=== PATIENT | female | born 1955 | race Caucasian/White ===

== ENCOUNTER 2017-06-09 09:46 | Emergency (ER) | payer OTHER ==
[2017-06-09 13:05] LABS: ADD MAN DIFF? NO
[2017-06-09 13:08] LABS: BASOPHIL # 0.1 10^3/ul (0.0-0.1); BASOPHILS % 0.9 % (0.0-2.0); EOSINOPHILS % 0.3 % (0.0-7.0); HEMATOCRIT 36.2 % (37.0-47.0); HEMOGLOBIN 11.9 g/dl (12.0-16.0); LYMPHOCYTES # 1.7 10^3/ul (0.8-2.9); MEAN CORPUSCULAR HEMOGLOBIN 29.8 pg (29.0-33.0); MEAN CORPUSCULAR HGB CONC 32.9 g/dl (32.0-37.0); MEAN CORPUSCULAR VOLUME 90.5 fl (82.0-101.0); MONOCYTE # 0.4 10^3/ul (0.3-0.9); MONOCYTES % 6.6 % (0.0-11.0); NEUTROPHIL # 4.2 10^3/ul (1.6-7.5); NEUTROPHILS % 65.9 % (39.0-77.0); PLATELET COUNT 219 10^3/UL (140-415); RED CELL DISTRIBUTION WIDTH 15.6 % (11.5-14.5)
[2017-06-09 13:08] LABS: WHITE BLOOD COUNT 6.4 10^3/ul (4.8-10.8)
[2017-06-09 13:27] LABS: INR 1.13; PARTIAL THROMBOPLASTIN TIME 27.9 Sec (25.0-35.0); PROTIME 14.7 Sec (11.9-14.9); PT RATIO 1.1
[2017-06-09 13:29] LABS: ALANINE AMINOTRANSFERASE 18 IU/L (13-69); ALBUMIN 2.8 g/dl (3.3-4.9); ALBUMIN/GLOBULIN RATIO 0.73; ALKALINE PHOSPHATASE 161 IU/L (42-121); ANION GAP 15 (8-16); ASPARTATE AMINO TRANSFERASE 45 IU/L (15-46); BILIRUBIN,INDIRECT 0.9 mg/dl (0-1.1); BILIRUBIN,TOTAL 0.9 mg/dl (0.2-1.3); BLOOD UREA NITROGEN 9 mg/dl (7-20); CALCIUM 8.7 mg/dl (8.4-10.2); CARBON DIOXIDE 33 mmol/L (21-31); CHLORIDE 94 mmol/L (97-110); CREATININE 0.77 mg/dl (0.44-1.00); GLUCOSE 156 mg/dl (70-220); LIPASE 86 U/L (23-300); POTASSIUM 3.6 mmol/L (3.5-5.1); SODIUM 138 mmol/L (135-144); TOTAL PROTEIN 6.6 g/dl (6.1-8.1)
[2017-06-09] MEDS: LIDOCAINE 1% (MDV) 20 ML INJ (13:57)
== END 2017-06-09 15:18 | disposition home or self-care (01) ==
LOC: E/R 09:46
DX: J20.9 Acute bronchitis, unspecified (principal); R18.8 Other ascites; R10.9 Unspecified abdominal pain; Z79.4 Long term (current) use of insulin; Z79.82 Long term (current) use of aspirin
CPT/HCPCS: 36415; 71010; 80053; 83690; 85025; 85610; 85730; 87400; 99285-25

== ENCOUNTER 2017-06-19 10:42 | Emergency (ER) | payer OTHER ==
[2017-06-19 16:20] LABS: ADD MAN DIFF? NO
[2017-06-19 16:31] LABS: WHITE BLOOD COUNT 5.5 10^3/ul (4.8-10.8)
[2017-06-19 16:31] LABS: BASOPHILS % 0.7 % (0.0-2.0); EOSINOPHILS % 0.4 % (0.0-7.0); HEMATOCRIT 32.4 % (37.0-47.0); HEMOGLOBIN 10.5 g/dl (12.0-16.0); LYMPHOCYTES # 1.6 10^3/ul (0.8-2.9); LYMPHOCYTES % 28.5 % (15.0-51.0); MEAN CORPUSCULAR HEMOGLOBIN 29.3 pg (29.0-33.0); MEAN CORPUSCULAR HGB CONC 32.4 g/dl (32.0-37.0); MEAN CORPUSCULAR VOLUME 90.5 fl (82.0-101.0); MEAN PLATELET VOLUME 9.3 fl (7.4-10.4); MONOCYTE # 0.4 10^3/ul (0.3-0.9); MONOCYTES % 7.5 % (0.0-11.0); NEUTROPHIL # 3.4 10^3/ul (1.6-7.5); NEUTROPHILS % 62.5 % (39.0-77.0); PLATELET COUNT 210 10^3/UL (140-415); RED BLOOD COUNT 3.58 10^6/ul (4.20-5.40); RED CELL DISTRIBUTION WIDTH 15.8 % (11.5-14.5)
[2017-06-19] MEDS: LIDOCAINE 1% (MPF) 5 ML VIAL (16:37)
[2017-06-19 16:53] LABS: INR 1.09; PARTIAL THROMBOPLASTIN TIME 28.4 Sec (25.0-35.0); PROTIME 14.3 Sec (11.9-14.9); PT RATIO 1.1
== END 2017-06-19 17:47 | disposition home or self-care (01) ==
LOC: E/R 10:42
DX: R18.8 Other ascites (principal); R11.0 Nausea; R06.02 Shortness of breath; E11.9 Type 2 diabetes mellitus without complications; Z79.82 Long term (current) use of aspirin; Z79.4 Long term (current) use of insulin
CPT/HCPCS: 85025; 85610; 85730; 99285-25

== ENCOUNTER 2017-06-27 09:46 | Emergency (ER) | payer OTHER ==
[2017-06-27] MEDS: LIDOCAINE 1% (MPF) 5 ML VIAL ×2 (16:45→18:33)
== END 2017-06-27 17:54 | disposition home or self-care (01) ==
LOC: E/R 09:46
DX: R18.8 Other ascites (principal); E11.9 Type 2 diabetes mellitus without complications; Z79.4 Long term (current) use of insulin; Z79.82 Long term (current) use of aspirin
CPT/HCPCS: 99285-25; Z7502

== ENCOUNTER 2017-07-06 09:59 | Emergency (ER) | payer OTHER ==
[2017-07-06] MEDS: ONDANSETRON (ODT) 4 MG TAB ODT (12:27)
[2017-07-06] MEDS: HYDROCODONE/APAP (10/325) TAB PO (12:28)
[2017-07-06] MEDS: LIDOCAINE 1% (MPF) 5 ML VIAL (17:12)
== END 2017-07-06 18:20 | disposition home or self-care (01) ==
LOC: E/R 09:59
DX: R18.8 Other ascites (principal); R10.84 Generalized abdominal pain; E11.9 Type 2 diabetes mellitus without complications; I10 Essential (primary) hypertension; Z79.4 Long term (current) use of insulin
CPT/HCPCS: 99285-25; Z7502

== ENCOUNTER 2017-07-14 07:21 | Inpatient (IN) | payer OTHER ==
[2017-07-14] MEDS: HYDROmorphONE 0.5 MG/0.5 ML SYG IV (08:27)
[2017-07-14] MEDS: ONDANSETRON 4 MG INJ IV (08:27)
[2017-07-14 08:34] LABS: ADD MAN DIFF? NO
[2017-07-14 08:39] LABS: WHITE BLOOD COUNT 5.7 10^3/ul (4.8-10.8)
[2017-07-14 08:39] LABS: BASOPHILS % 0.7 % (0.0-2.0); EOSINOPHILS # 0.1 10^3/ul (0.0-0.5); EOSINOPHILS % 0.9 % (0.0-7.0); HEMATOCRIT 33.6 % (37.0-47.0); HEMOGLOBIN 11.1 g/dl (12.0-16.0); LYMPHOCYTES # 1.3 10^3/ul (0.8-2.9); LYMPHOCYTES % 23.4 % (15.0-51.0); MEAN CORPUSCULAR HEMOGLOBIN 29.8 pg (29.0-33.0); MEAN CORPUSCULAR VOLUME 90.1 fl (82.0-101.0); MEAN PLATELET VOLUME 9.6 fl (7.4-10.4); MONOCYTE # 0.4 10^3/ul (0.3-0.9); MONOCYTES % 7.6 % (0.0-11.0); NEUTROPHIL # 3.8 10^3/ul (1.6-7.5); PLATELET COUNT 243 10^3/UL (140-415); RED BLOOD COUNT 3.73 10^6/ul (4.20-5.40); RED CELL DISTRIBUTION WIDTH 15.8 % (11.5-14.5)
[2017-07-14 09:00] LABS: ADD UMIC YES; UR ASCORBIC ACID 40 mg/dL (NEGATIVE); UR BACTERIA FEW /HPF (NONE SEEN); UR BILIRUBIN (Dip) NEGATIVE (NEGATIVE); UR BLOOD (Dip) NEGATIVE (NEGATIVE); UR CLARITY CLOUDY (CLEAR); UR COLOR AMBER (YELLOW); UR GLUCOSE (Dip) 2+ mg/dL (NEGATIVE); UR KETONES (Dip) NEGATIVE (NEGATIVE); UR LEUKOCYTE ESTERASE (Dip) 3+ Leu/ul (NEGATIVE); UR MUCUS FEW /HPF (NONE SEEN); UR NITRITE (Dip) NEGATIVE (NEGATIVE); UR NONSQUAMOUS EPITHELIAL CELL 1 /HPF (NONE SEEN); UR RBC 5 /HPF (0-5); UR SPECIFIC GRAVITY (Dip) 1.018 (1.003-1.030); UR SQUAMOUS EPITHELIAL CELL MODERATE /HPF (FEW); UR TOTAL PROTEIN (Dip) NEGATIVE (NEGATIVE); UR UROBILINOGEN (Dip) 1+ mg/dL (NEGATIVE); UR WBC 132 /HPF (0-5)
[2017-07-14 09:06] LABS: ALANINE AMINOTRANSFERASE 30 IU/L (13-69); ALBUMIN 2.7 g/dl (3.3-4.9); ALBUMIN/GLOBULIN RATIO 0.71; ALKALINE PHOSPHATASE 187 IU/L (42-121); ANION GAP 10 (8-16); ASPARTATE AMINO TRANSFERASE 41 IU/L (15-46); BILIRUBIN,INDIRECT 0.5 mg/dl (0-1.1); BILIRUBIN,TOTAL 0.5 mg/dl (0.2-1.3); BLOOD UREA NITROGEN 11 mg/dl (7-20); CALCIUM 8.8 mg/dl (8.4-10.2); CARBON DIOXIDE 35 mmol/L (21-31); CHLORIDE 90 mmol/L (97-110); CREATININE 0.62 mg/dl (0.44-1.00); GLUCOSE 256 mg/dl (70-220); LIPASE 111 U/L (23-300); SODIUM 132 mmol/L (135-144); TOTAL PROTEIN 6.5 g/dl (6.1-8.1)
[2017-07-14 09:15] LABS: POTASSIUM 2.8 mmol/L (3.5-5.1)
[2017-07-14] MEDS ORDERED: POTASSIUM PHOSPHATE 20 MEQ in SOD CHLORIDE 0.9% 250 ML IVPB (10:35)
[2017-07-14] MEDS: CEFTRIAXONE 1 GM/50 ML (PMX) 50 ML IVPB (10:52)
[2017-07-14] MEDS: POTASSIUM CHLORIDE 40 MEQ in DEXTROSE 5% 250 ML IV (11:30)
[2017-07-14] MEDS: HYDROmorphONE 1 MG/ML SYG IV (11:31)
[2017-07-14 13:15] LABS: INR 1.08; PROTIME 14.1 Sec (11.9-14.9); PT RATIO 1.1
[2017-07-14] MEDS ORDERED: HYDROmorphONE 1 MG/ML SYG IV (13:30)
[2017-07-14] MEDS ORDERED: NACL 0.9% 3 ML SYG IV (13:30)
[2017-07-14] MEDS ORDERED: ZOLPIDEM 5 MG TAB PO (13:30)
[2017-07-14] MEDS ORDERED: ACETAMINOPHEN 650 MG SUPP PR (13:30)
[2017-07-14] MEDS ORDERED: METOCLOPRAMIDE 10 MG INJ IV (13:30)
[2017-07-14] MEDS ORDERED: HYDROmorphONE 0.5 MG/0.5 ML SYG IV (13:30)
[2017-07-14] MEDS: LIDOCAINE 1% (MPF) 5 ML VIAL (15:03)
[2017-07-14] MEDS: DEXTROSE 5%-0.45% NACL 1,000 ML IV ×2 (15:19→17:35)
[2017-07-14 16:08] LABS: POTASSIUM 3.9 mmol/L (3.5-5.1)
[2017-07-15] MEDS: PANTOPRAZOLE 40 MG INJ IV (05:26)
[2017-07-15 07:33] LABS: ADD MAN DIFF? NO
[2017-07-15 07:48] LABS: BASOPHILS % 0.9 % (0.0-2.0); EOSINOPHILS # 0.1 10^3/ul (0.0-0.5); EOSINOPHILS % 1.1 % (0.0-7.0); HEMOGLOBIN 10.1 g/dl (12.0-16.0); LYMPHOCYTES # 0.9 10^3/ul (0.8-2.9); MEAN CORPUSCULAR HEMOGLOBIN 29.4 pg (29.0-33.0); MEAN CORPUSCULAR HGB CONC 32.6 g/dl (32.0-37.0); MEAN CORPUSCULAR VOLUME 90.4 fl (82.0-101.0); MEAN PLATELET VOLUME 9.4 fl (7.4-10.4); MONOCYTE # 0.4 10^3/ul (0.3-0.9); MONOCYTES % 7.6 % (0.0-11.0); NEUTROPHIL # 3.2 10^3/ul (1.6-7.5); NEUTROPHILS % 70.2 % (39.0-77.0); PLATELET COUNT 183 10^3/UL (140-415); RED BLOOD COUNT 3.43 10^6/ul (4.20-5.40); RED CELL DISTRIBUTION WIDTH 15.6 % (11.5-14.5)
[2017-07-15 07:48] LABS: WHITE BLOOD COUNT 4.6 10^3/ul (4.8-10.8)
[2017-07-15 08:08] LABS: INR 1.17; PROTIME 15.1 Sec (11.9-14.9); PT RATIO 1.2
[2017-07-15 08:09] LABS: PARTIAL THROMBOPLASTIN TIME 29.4 Sec (25.0-35.0)
[2017-07-15 08:11] LABS: ALANINE AMINOTRANSFERASE 34 IU/L (13-69); ALBUMIN 2.1 g/dl (3.3-4.9); ALKALINE PHOSPHATASE 300 IU/L (42-121); ANION GAP 8 (8-16); ASPARTATE AMINO TRANSFERASE 88 IU/L (15-46); BILIRUBIN,INDIRECT 0.5 mg/dl (0-1.1); BILIRUBIN,TOTAL 0.5 mg/dl (0.2-1.3); BLOOD UREA NITROGEN 9 mg/dl (7-20); CALCIUM 8.6 mg/dl (8.4-10.2); CARBON DIOXIDE 34 mmol/L (21-31); CHLORIDE 96 mmol/L (97-110); CREATININE 0.61 mg/dl (0.44-1.00); GLUCOSE 171 mg/dl (70-220); POTASSIUM 3.4 mmol/L (3.5-5.1); SODIUM 135 mmol/L (135-144); TOTAL PROTEIN 5.1 g/dl (6.1-8.1)
[2017-07-15] MEDS: CEFTRIAXONE 1 GM/50 ML (PMX) 50 ML IVPB (12:22)
[2017-07-15] MEDS: POTASSIUM CHLORIDE 20 MEQ POWDER FOR ORAL SOLN PO (14:21)
[2017-07-16] MEDS: CYCLOBENZAPRINE 10 MG TAB PO (06:07)
[2017-07-16] MEDS: PANTOPRAZOLE 40 MG INJ IV (06:07)
[2017-07-16 07:43] LABS: HEMATOCRIT 31.7 % (37.0-47.0); HEMOGLOBIN 10.5 g/dl (12.0-16.0); MEAN CORPUSCULAR HEMOGLOBIN 29.6 pg (29.0-33.0); MEAN CORPUSCULAR HGB CONC 33.1 g/dl (32.0-37.0); MEAN CORPUSCULAR VOLUME 89.3 fl (82.0-101.0); MEAN PLATELET VOLUME 9.3 fl (7.4-10.4); PLATELET COUNT 205 10^3/UL (140-415); RED BLOOD COUNT 3.55 10^6/ul (4.20-5.40); RED CELL DISTRIBUTION WIDTH 15.8 % (11.5-14.5)
[2017-07-16 07:43] LABS: WHITE BLOOD COUNT 4.3 10^3/ul (4.8-10.8)
[2017-07-16 08:00] LABS: ADD MAN DIFF? YES; POSITIVE DIFF @See below
[2017-07-16 08:02] LABS: INR 1.12; PROTIME 14.6 Sec (11.9-14.9); PT RATIO 1.1
[2017-07-16 08:03] LABS: PARTIAL THROMBOPLASTIN TIME 33.5 Sec (25.0-35.0)
[2017-07-16 08:14] LABS: ANION GAP 8 (8-16); BLOOD UREA NITROGEN 8 mg/dl (7-20); CARBON DIOXIDE 32 mmol/L (21-31); CHLORIDE 98 mmol/L (97-110); CREATININE 0.59 mg/dl (0.44-1.00); GLUCOSE 148 mg/dl (70-220); POTASSIUM 3.9 mmol/L (3.5-5.1); SODIUM 134 mmol/L (135-144)
[2017-07-16 08:15] LABS: CALCIUM 8.2 mg/dl (8.4-10.2)
[2017-07-16 09:50] LABS: BAND NEUTROPHILS % (M) 2 % (0-4); BASOPHILS % (M) 1 % (0-2); EOSINOPHILS % (M) 2 % (0-7); GIANT THROMBO% (M) 1 % (0-0); LYMPHOCYTES #M 1.3 10^3/ul (0.8-2.9); LYMPHOCYTES % (M) 32 % (15-51); MONOCYTE #M 0.3 10^3/ul (0.3-0.9); MONOCYTES % (M) 8 % (0-11); PLATELET ESTIMATE NORMAL; POLYCHROMASIA 1+ (0-0); SEG NEUT #M 2.4 10^3/ul (1.6-7.5); SEGMENTED NEUTROPHILS (M) % 55 % (39-77); SMUDGE%M 10 % (0-0)
[2017-07-16] MEDS: CEFTRIAXONE 1 GM/50 ML (PMX) 50 ML IVPB (12:01)
[2017-07-16] MEDS: traMADol 50 MG TAB NGT (21:03)
[2017-07-16] MEDS: MIDODRINE 5 MG TAB PO (23:00)
[2017-07-17] MEDS: PANTOPRAZOLE 40 MG INJ IV (06:19)
[2017-07-17] MEDS: MIDODRINE 5 MG TAB PO ×3 (08:31→17:09)
[2017-07-17] MEDS: CEFTRIAXONE 1 GM/50 ML (PMX) 50 ML IVPB (11:18)
[2017-07-17] MEDS: ONDANSETRON 4 MG INJ IV (13:46)
[2017-07-17] MEDS: traMADol 50 MG TAB PO (13:46)
[2017-07-17] MEDS ORDERED: DEXTROSE 50% 50 ML SYRINGE IV ×2 (16:00)
[2017-07-17] MEDS ORDERED: GLUCAGON 1 MG INJ IM (16:00)
[2017-07-17] MEDS ORDERED: GLUCOSE GEL 15 GRAM TUBE BUCCAL (16:00)
[2017-07-17] MEDS ORDERED: GLUCOSE GEL 15 GRAM TUBE PO ×2 (16:00)
[2017-07-17] MEDS: INSULIN ASPART [NOVOLOG] 3 ML PEN SC ×2 (17:11→20:18)
[2017-07-17] MEDS ORDERED: traMADol 50 MG TAB PO (17:30)
[2017-07-18] MEDS: ACCU-CHEK XX (02:00)
[2017-07-18] MEDS: PANTOPRAZOLE 40 MG INJ IV (06:36)
[2017-07-18] MEDS: MIDODRINE 5 MG TAB PO ×2 (07:40→12:34)
[2017-07-18] MEDS: traMADol 50 MG TAB PO (07:40)
[2017-07-18] MEDS: INSULIN GLARGINE [LANtus] 3 ML PEN SC (08:43)
[2017-07-18] MEDS: INSULIN ASPART [NOVOLOG] 3 ML PEN SC ×2 (08:44→11:29)
[2017-07-18] MEDS: CEFTRIAXONE 1 GM/50 ML (PMX) 50 ML IVPB (11:19)
== END 2017-07-18 16:45 | disposition home or self-care (01) | DRG 442 ==
LOC: E/R 07:21 → MS4 11:08
PROC: 0W9G3ZZ Drainage of Peritoneal Cavity, Percutaneous Approach (ICD-10-PCS; principal; 2017-07-14)
DX: K71.51 Toxic liver disease with chronic active hepatitis with ascites (principal); K76.6 Portal hypertension; K74.69 Other cirrhosis of liver; N30.00 Acute cystitis without hematuria; M80.08XA Age-related osteoporosis with current pathological fracture, vertebra(e), initial encounter for fracture; G62.9 Polyneuropathy, unspecified; K75.4 Autoimmune hepatitis; E87.6 Hypokalemia; E11.9 Type 2 diabetes mellitus without complications
CPT/HCPCS: 36415; 74176; 80048; 80053; 81001; 82962; 83690; 84132; 85025; 85610; 85730; 87086; 96374; 96375; 96376; 99285-25; G0378

== ENCOUNTER 2017-07-21 07:38 | Emergency (ER) | payer OTHER ==
[2017-07-21] MEDS: LIDOCAINE 1% (MPF) 5 ML VIAL (10:19)
[2017-07-21] MEDS: HYDROmorphONE 1 MG/ML SYG IV (10:38)
[2017-07-21] MEDS: SOD CHLORIDE 0.9% 500 ML IV (10:38)
[2017-07-21 11:05] LABS: ADD MAN DIFF? NO
[2017-07-21 11:08] LABS: BASOPHIL # 0.1 10^3/ul (0.0-0.1); EOSINOPHILS % 0.6 % (0.0-7.0); HEMATOCRIT 32.8 % (37.0-47.0); HEMOGLOBIN 10.5 g/dl (12.0-16.0); LYMPHOCYTES # 1.3 10^3/ul (0.8-2.9); LYMPHOCYTES % 20.6 % (15.0-51.0); MEAN CORPUSCULAR HEMOGLOBIN 29.2 pg (29.0-33.0); MEAN CORPUSCULAR VOLUME 91.1 fl (82.0-101.0); MEAN PLATELET VOLUME 9.3 fl (7.4-10.4); MONOCYTE # 0.5 10^3/ul (0.3-0.9); MONOCYTES % 7.6 % (0.0-11.0); NEUTROPHIL # 4.3 10^3/ul (1.6-7.5); NEUTROPHILS % 69.7 % (39.0-77.0); PLATELET COUNT 229 10^3/UL (140-415); RED CELL DISTRIBUTION WIDTH 15.9 % (11.5-14.5)
[2017-07-21 11:08] LABS: WHITE BLOOD COUNT 6.2 10^3/ul (4.8-10.8)
[2017-07-21 11:34] LABS: ALANINE AMINOTRANSFERASE 28 IU/L (13-69); ALBUMIN 2.4 g/dl (3.3-4.9); ALBUMIN/GLOBULIN RATIO 0.75; ALKALINE PHOSPHATASE 203 IU/L (42-121); ANION GAP 8 (8-16); ASPARTATE AMINO TRANSFERASE 35 IU/L (15-46); BILIRUBIN,INDIRECT 0.2 mg/dl (0-1.1); BILIRUBIN,TOTAL 0.2 mg/dl (0.2-1.3); BLOOD UREA NITROGEN 13 mg/dl (7-20); CALCIUM 8.4 mg/dl (8.4-10.2); CARBON DIOXIDE 32 mmol/L (21-31); CHLORIDE 97 mmol/L (97-110); CREATININE 0.75 mg/dl (0.44-1.00); GLUCOSE 148 mg/dl (70-220); LIPASE 84 U/L (23-300); POTASSIUM 4.3 mmol/L (3.5-5.1); SODIUM 133 mmol/L (135-144); TOTAL PROTEIN 5.6 g/dl (6.1-8.1)
[2017-07-21 11:37] LABS: ADD UMIC YES; UR ASCORBIC ACID 40 mg/dL (NEGATIVE); UR BACTERIA FEW /HPF (NONE SEEN); UR BILIRUBIN (Dip) NEGATIVE (NEGATIVE); UR BLOOD (Dip) NEGATIVE (NEGATIVE); UR CLARITY SLIGHTLY CLOUDY (CLEAR); UR COLOR AMBER (YELLOW); UR GLUCOSE (Dip) NEGATIVE (NEGATIVE); UR KETONES (Dip) NEGATIVE (NEGATIVE); UR LEUKOCYTE ESTERASE (Dip) 1+ Leu/ul (NEGATIVE); UR MUCUS FEW /HPF (NONE SEEN); UR NITRITE (Dip) NEGATIVE (NEGATIVE); UR NONSQUAMOUS EPITHELIAL CELL 5 /HPF (NONE SEEN); UR RBC 1 /HPF (0-5); UR SPECIFIC GRAVITY (Dip) 1.018 (1.003-1.030); UR SQUAMOUS EPITHELIAL CELL FEW /HPF (FEW); UR TOTAL PROTEIN (Dip) NEGATIVE (NEGATIVE); UR UROBILINOGEN (Dip) 2+ mg/dL (NEGATIVE); UR WBC 8 /HPF (0-5)
[2017-07-21 11:45] LABS: TROPONIN-I < 0.012 ng/ml (0.00-0.12)
[2017-07-21 11:57] LABS: INR 1.13; PROTIME 14.7 Sec (11.9-14.9); PT RATIO 1.1
[2017-07-21] MEDS: CEFTRIAXONE 1 GM/50 ML (PMX) 50 ML IVPB (13:18)
== END 2017-07-21 13:57 | disposition home or self-care (01) ==
LOC: E/R 07:38
DX: K74.60 Unspecified cirrhosis of liver (principal); G89.4 Chronic pain syndrome; N30.00 Acute cystitis without hematuria; I10 Essential (primary) hypertension; E11.9 Type 2 diabetes mellitus without complications; Z79.4 Long term (current) use of insulin
CPT/HCPCS: 36415; 80053; 81001; 83690; 84484; 85025; 85610; 87086; 93005; 96374; 96375; 99285-25

== ENCOUNTER 2017-07-28 09:31 | Emergency (ER) | payer OTHER ==
[2017-07-28 13:31] LABS: ADD MAN DIFF? NO
[2017-07-28 13:34] LABS: WHITE BLOOD COUNT 6.5 10^3/ul (4.8-10.8)
[2017-07-28 13:35] LABS: BASOPHIL # 0.1 10^3/ul (0.0-0.1); BASOPHILS % 0.9 % (0.0-2.0); EOSINOPHILS # 0.1 10^3/ul (0.0-0.5); EOSINOPHILS % 0.8 % (0.0-7.0); HEMATOCRIT 28.5 % (37.0-47.0); HEMOGLOBIN 9.6 g/dl (12.0-16.0); LYMPHOCYTES # 1.5 10^3/ul (0.8-2.9); LYMPHOCYTES % 23.9 % (15.0-51.0); MEAN CORPUSCULAR HEMOGLOBIN 29.4 pg (29.0-33.0); MEAN CORPUSCULAR HGB CONC 33.7 g/dl (32.0-37.0); MEAN CORPUSCULAR VOLUME 87.4 fl (82.0-101.0); MEAN PLATELET VOLUME 9.5 fl (7.4-10.4); MONOCYTE # 0.5 10^3/ul (0.3-0.9); NEUTROPHIL # 4.3 10^3/ul (1.6-7.5); NEUTROPHILS % 66.9 % (39.0-77.0); PLATELET COUNT 196 10^3/UL (140-415); RED BLOOD COUNT 3.26 10^6/ul (4.20-5.40); RED CELL DISTRIBUTION WIDTH 15.4 % (11.5-14.5)
[2017-07-28 13:54] LABS: INR 1.14; PROTIME 14.8 Sec (11.9-14.9); PT RATIO 1.2
[2017-07-28 13:56] LABS: ALANINE AMINOTRANSFERASE 27 IU/L (13-69); ALBUMIN 2.5 g/dl (3.3-4.9); ALBUMIN/GLOBULIN RATIO 0.75; ALKALINE PHOSPHATASE 181 IU/L (42-121); ANION GAP 7 (8-16); ASPARTATE AMINO TRANSFERASE 34 IU/L (15-46); BILIRUBIN,INDIRECT 0.2 mg/dl (0-1.1); BILIRUBIN,TOTAL 0.2 mg/dl (0.2-1.3); BLOOD UREA NITROGEN 15 mg/dl (7-20); CALCIUM 8.4 mg/dl (8.4-10.2); CARBON DIOXIDE 32 mmol/L (21-31); CHLORIDE 93 mmol/L (97-110); GLUCOSE 214 mg/dl (70-220); POTASSIUM 3.1 mmol/L (3.5-5.1); SODIUM 129 mmol/L (135-144); TOTAL PROTEIN 5.8 g/dl (6.1-8.1)
[2017-07-28] MEDS: POTASSIUM CHLORIDE (SR) 20 MEQ TAB PO (14:47)
[2017-07-28] MEDS: SODIUM CHLORIDE 1 GM TAB PO (14:47)
[2017-07-28] MEDS: LIDOCAINE 1% (MPF) 5 ML VIAL (16:10)
== END 2017-07-28 19:29 | disposition home or self-care (01) ==
LOC: E/R 09:31
DX: K74.60 Unspecified cirrhosis of liver (principal); D64.9 Anemia, unspecified; E87.1 Hypo-osmolality and hyponatremia; E87.6 Hypokalemia; R77.0 Abnormality of albumin; Z79.82 Long term (current) use of aspirin
CPT/HCPCS: 80053; 85025; 85610; 99285-25

== ENCOUNTER 2017-08-07 08:27 | Emergency (ER) | payer OTHER ==
[2017-08-07] MEDS: morphine 4 MG/ML VIAL IV (09:25)
[2017-08-07] MEDS: ONDANSETRON 4 MG INJ IV (09:25)
[2017-08-07] MEDS: LIDOCAINE 1% (MPF) 5 ML VIAL (10:40)
[2017-08-07 11:00] LABS: ADD MAN DIFF? NO
[2017-08-07 11:02] LABS: BASOPHILS % 0.4 % (0.0-2.0); EOSINOPHILS % 0.8 % (0.0-7.0); HEMATOCRIT 27.3 % (37.0-47.0); HEMOGLOBIN 9.1 g/dl (12.0-16.0); LYMPHOCYTES # 1.4 10^3/ul (0.8-2.9); LYMPHOCYTES % 29.6 % (15.0-51.0); MEAN CORPUSCULAR HEMOGLOBIN 29.6 pg (29.0-33.0); MEAN CORPUSCULAR HGB CONC 33.3 g/dl (32.0-37.0); MEAN CORPUSCULAR VOLUME 88.9 fl (82.0-101.0); MONOCYTE # 0.4 10^3/ul (0.3-0.9); MONOCYTES % 9.3 % (0.0-11.0); NEUTROPHIL # 2.8 10^3/ul (1.6-7.5); NEUTROPHILS % 59.7 % (39.0-77.0); PLATELET COUNT 189 10^3/UL (140-415); RED BLOOD COUNT 3.07 10^6/ul (4.20-5.40); RED CELL DISTRIBUTION WIDTH 15.3 % (11.5-14.5)
[2017-08-07 11:02] LABS: WHITE BLOOD COUNT 4.7 10^3/ul (4.8-10.8)
[2017-08-07 11:23] LABS: ALANINE AMINOTRANSFERASE 28 IU/L (13-69); ALBUMIN 2.4 g/dl (3.3-4.9); ALBUMIN/GLOBULIN RATIO 0.77; ALKALINE PHOSPHATASE 129 IU/L (42-121); ANION GAP 8 (8-16); ASPARTATE AMINO TRANSFERASE 26 IU/L (15-46); BILIRUBIN,INDIRECT 0.3 mg/dl (0-1.1); BILIRUBIN,TOTAL 0.3 mg/dl (0.2-1.3); BLOOD UREA NITROGEN 10 mg/dl (7-20); CALCIUM 8.3 mg/dl (8.4-10.2); CARBON DIOXIDE 37 mmol/L (21-31); CHLORIDE 92 mmol/L (97-110); CREATININE 0.59 mg/dl (0.44-1.00); GLUCOSE 211 mg/dl (70-220); POTASSIUM 3.5 mmol/L (3.5-5.1); SODIUM 133 mmol/L (135-144); TOTAL PROTEIN 5.5 g/dl (6.1-8.1)
[2017-08-07 11:27] LABS: INR 1.15; PROTIME 14.9 Sec (11.9-14.9); PT RATIO 1.2
[2017-08-07 11:28] LABS: PARTIAL THROMBOPLASTIN TIME 33.2 Sec (25.0-35.0)
== END 2017-08-07 12:34 | disposition home or self-care (01) ==
LOC: E/R 12:34
DX: K74.60 Unspecified cirrhosis of liver (principal); D72.819 Decreased white blood cell count, unspecified; D64.9 Anemia, unspecified; E88.09 Other disorders of plasma-protein metabolism, not elsewhere classified; E87.1 Hypo-osmolality and hyponatremia; E87.3 Alkalosis; E11.9 Type 2 diabetes mellitus without complications; Z79.4 Long term (current) use of insulin
CPT/HCPCS: 80053; 85025; 85610; 85730; 96374; 96375; 99285-25

== ENCOUNTER 2017-08-11 17:21 | Emergency (ER) | payer OTHER ==
[2017-08-11] MEDS: HYDROCODONE/APAP (5/325) TAB PO (19:00)
== END 2017-08-11 21:44 | disposition home or self-care (01) ==
LOC: E/R 17:21
DX: S32.049A Unspecified fracture of fourth lumbar vertebra, initial encounter for closed fracture (principal); S32.059A Unspecified fracture of fifth lumbar vertebra, initial encounter for closed fracture; S09.90XA Unspecified injury of head, initial encounter; I10 Essential (primary) hypertension; E11.9 Type 2 diabetes mellitus without complications; W01.0XXA Fall on same level from slipping, tripping and stumbling without subsequent striking against object, initial encounter; Y92.9 Unspecified place or not applicable; Z79.4 Long term (current) use of insulin; Z79.84 Long term (current) use of oral hypoglycemic drugs
CPT/HCPCS: 70450; 72131; 73510; 99285-25

== ENCOUNTER 2017-08-17 08:38 | Emergency (ER) | payer OTHER ==
[2017-08-17] MEDS: ONDANSETRON (ODT) 4 MG TAB ODT (13:17)
[2017-08-17] MEDS: HYDROmorphONE 0.5 MG/0.5 ML SYG IM (13:17)
[2017-08-17 13:30] LABS: ADD MAN DIFF? NO
[2017-08-17 13:32] LABS: BASOPHILS % 0.5 % (0.0-2.0); EOSINOPHILS % 0.5 % (0.0-7.0); HEMATOCRIT 30.4 % (37.0-47.0); HEMOGLOBIN 9.8 g/dl (12.0-16.0); LYMPHOCYTES # 1.5 10^3/ul (0.8-2.9); LYMPHOCYTES % 24.1 % (15.0-51.0); MEAN CORPUSCULAR HEMOGLOBIN 28.2 pg (29.0-33.0); MEAN CORPUSCULAR HGB CONC 32.2 g/dl (32.0-37.0); MEAN CORPUSCULAR VOLUME 87.4 fl (82.0-101.0); MONOCYTE # 0.4 10^3/ul (0.3-0.9); NEUTROPHIL # 4.1 10^3/ul (1.6-7.5); NEUTROPHILS % 67.6 % (39.0-77.0); PLATELET COUNT 212 10^3/UL (140-415); RED BLOOD COUNT 3.48 10^6/ul (4.20-5.40); RED CELL DISTRIBUTION WIDTH 15.3 % (11.5-14.5)
[2017-08-17 13:32] LABS: WHITE BLOOD COUNT 6.1 10^3/ul (4.8-10.8)
[2017-08-17 13:48] LABS: ALANINE AMINOTRANSFERASE 22 IU/L (13-69); ALBUMIN 2.7 g/dl (3.3-4.9); ALBUMIN/GLOBULIN RATIO 0.77; ALKALINE PHOSPHATASE 173 IU/L (42-121); ANION GAP 9 (8-16); ASPARTATE AMINO TRANSFERASE 23 IU/L (15-46); BILIRUBIN,INDIRECT 0.2 mg/dl (0-1.1); BILIRUBIN,TOTAL 0.2 mg/dl (0.2-1.3); BLOOD UREA NITROGEN 14 mg/dl (7-20); CALCIUM 8.6 mg/dl (8.4-10.2); CARBON DIOXIDE 36 mmol/L (21-31); CHLORIDE 94 mmol/L (97-110); CREATININE 0.63 mg/dl (0.44-1.00); GLUCOSE 251 mg/dl (70-220); SODIUM 135 mmol/L (135-144); TOTAL PROTEIN 6.2 g/dl (6.1-8.1)
[2017-08-17 13:52] LABS: INR 1.11; PROTIME 14.5 Sec (11.9-14.9); PT RATIO 1.1
[2017-08-17 13:53] LABS: PARTIAL THROMBOPLASTIN TIME 31.3 Sec (25.0-35.0)
[2017-08-17] MEDS: LIDOCAINE 1% (MDV) 20 ML INJ (16:04)
== END 2017-08-17 17:28 | disposition home or self-care (01) ==
LOC: E/R 08:38
DX: R18.8 Other ascites (principal); E11.9 Type 2 diabetes mellitus without complications; R06.02 Shortness of breath; Z79.4 Long term (current) use of insulin
CPT/HCPCS: 80053; 85025; 85610; 85730; 96372; 99285-25

== ENCOUNTER 2017-08-28 08:09 | Emergency (ER) | payer OTHER ==
[2017-08-28] MEDS: ONDANSETRON (ODT) 4 MG TAB ODT (09:50)
[2017-08-28] MEDS: LIDOCAINE 1% (MPF) 5 ML VIAL (09:51)
[2017-08-28] MEDS: HYDROCODONE/APAP (5/325) TAB PO (09:57)
== END 2017-08-28 10:38 | disposition home or self-care (01) ==
LOC: E/R 08:09
DX: R18.8 Other ascites (principal); R10.84 Generalized abdominal pain; E11.9 Type 2 diabetes mellitus without complications; Z79.4 Long term (current) use of insulin
CPT/HCPCS: 99285-25; Z7502

== ENCOUNTER 2017-09-06 10:37 | Emergency (ER) | payer OTHER ==
[2017-09-06] MEDS: ONDANSETRON 4 MG INJ IV (12:40)
[2017-09-06] MEDS: HYDROmorphONE 0.5 MG/0.5 ML SYG IV (12:41)
[2017-09-06 12:48] LABS: ADD MAN DIFF? NO
[2017-09-06 12:50] LABS: BASOPHILS % 0.7 % (0.0-2.0); EOSINOPHILS % 0.7 % (0.0-7.0); HEMATOCRIT 28.2 % (37.0-47.0); HEMOGLOBIN 9.1 g/dl (12.0-16.0); LYMPHOCYTES # 1.4 10^3/ul (0.8-2.9); MEAN CORPUSCULAR HEMOGLOBIN 26.8 pg (29.0-33.0); MEAN CORPUSCULAR HGB CONC 32.3 g/dl (32.0-37.0); MEAN CORPUSCULAR VOLUME 82.9 fl (82.0-101.0); MEAN PLATELET VOLUME 9.9 fl (7.4-10.4); MONOCYTE # 0.4 10^3/ul (0.3-0.9); MONOCYTES % 7.6 % (0.0-11.0); NEUTROPHIL # 3.8 10^3/ul (1.6-7.5); NEUTROPHILS % 66.7 % (39.0-77.0); PLATELET COUNT 201 10^3/UL (140-415); RED CELL DISTRIBUTION WIDTH 15.9 % (11.5-14.5)
[2017-09-06 12:50] LABS: WHITE BLOOD COUNT 5.8 10^3/ul (4.8-10.8)
[2017-09-06 13:08] LABS: ALANINE AMINOTRANSFERASE 21 IU/L (13-69); ALBUMIN/GLOBULIN RATIO 0.78; ALKALINE PHOSPHATASE 133 IU/L (42-121); ANION GAP 14 (8-16); ASPARTATE AMINO TRANSFERASE 42 IU/L (15-46); BILIRUBIN,INDIRECT 0.3 mg/dl (0-1.1); BILIRUBIN,TOTAL 0.3 mg/dl (0.2-1.3); BLOOD UREA NITROGEN 13 mg/dl (7-20); CALCIUM 8.2 mg/dl (8.4-10.2); CARBON DIOXIDE 29 mmol/L (21-31); CHLORIDE 95 mmol/L (97-110); CREATININE 0.57 mg/dl (0.44-1.00); GLUCOSE 142 mg/dl (70-220); SODIUM 134 mmol/L (135-144); TOTAL PROTEIN 6.8 g/dl (6.1-8.1)
[2017-09-06 13:46] LABS: INR 1.06; PROTIME 13.9 Sec (11.9-14.9); PT RATIO 1.1
[2017-09-06 13:47] LABS: PARTIAL THROMBOPLASTIN TIME 31.1 Sec (25.0-35.0)
[2017-09-06 15:48] LABS: FLD MN% 95.7 %; FLD PMN% 4.3 %; FLD RBC 1000 /uL; FLD WBC 117 /cmm
[2017-09-06] MEDS: METOCLOPRAMIDE 10 MG INJ IV (16:17)
[2017-09-06 16:19] LABS: FLUID GLUCOSE 120 mg/dl
[2017-09-06 16:20] LABS: FLUID LD 215 U/L; FLUID TYPE PARACENTESIS FLUID
[2017-09-06] MEDS ORDERED: ONDANSETRON 4 MG INJ IV (16:20)
[2017-09-06 16:39] LABS: FLD CLARITY CLEAR; FLD COLOR YELLOW
[2017-09-06 16:39] LABS: FLD TYPE PARACENTHESIS
== END 2017-09-06 16:39 | disposition home or self-care (01) ==
LOC: E/R 10:37
DX: R18.8 Other ascites (principal); E11.9 Type 2 diabetes mellitus without complications; Z79.4 Long term (current) use of insulin
CPT/HCPCS: 49083; 80053; 82042; 82945; 83615; 85025; 85610; 85730; 87070; 87102; 87116; 89051; 96374; 96375; 99285-25

== ENCOUNTER 2017-09-15 10:27 | Emergency (ER) | payer OTHER ==
[2017-09-15] MEDS: ONDANSETRON (ODT) 4 MG TAB ODT (11:58)
[2017-09-15] MEDS: HYDROCODONE/APAP (5/325) TAB PO (11:58)
[2017-09-15] MEDS: LIDOCAINE 1% (MDV) 10 ML INJ (13:02)
== END 2017-09-15 14:02 | disposition home or self-care (01) ==
LOC: E/R 10:27
DX: R18.8 Other ascites (principal); E11.9 Type 2 diabetes mellitus without complications; Z79.84 Long term (current) use of oral hypoglycemic drugs
CPT/HCPCS: 99285-25; Z7502

== ENCOUNTER 2017-09-25 11:23 | Emergency (ER) | payer OTHER ==
[2017-09-25] MEDS ORDERED: ONDANSETRON 4 MG INJ IV (15:40)
[2017-09-25] MEDS ORDERED: ONDANSETRON (ODT) 4 MG TAB ODT (16:11)
[2017-09-25 16:20] LABS: ADD MAN DIFF? NO
[2017-09-25 16:22] LABS: BASOPHILS % 0.7 % (0.0-2.0); EOSINOPHILS # 0.1 10^3/ul (0.0-0.5); EOSINOPHILS % 1.5 % (0.0-7.0); HEMATOCRIT 32.8 % (37.0-47.0); HEMOGLOBIN 10.4 g/dl (12.0-16.0); LYMPHOCYTES # 1.5 10^3/ul (0.8-2.9); LYMPHOCYTES % 26.9 % (15.0-51.0); MEAN CORPUSCULAR HEMOGLOBIN 26.2 pg (29.0-33.0); MEAN CORPUSCULAR HGB CONC 31.7 g/dl (32.0-37.0); MEAN CORPUSCULAR VOLUME 82.6 fl (82.0-101.0); MEAN PLATELET VOLUME 9.7 fl (7.4-10.4); MONOCYTE # 0.4 10^3/ul (0.3-0.9); MONOCYTES % 6.9 % (0.0-11.0); NEUTROPHIL # 3.5 10^3/ul (1.6-7.5); NEUTROPHILS % 63.8 % (39.0-77.0); PLATELET COUNT 240 10^3/UL (140-415); RED BLOOD COUNT 3.97 10^6/ul (4.20-5.40); RED CELL DISTRIBUTION WIDTH 16.5 % (11.5-14.5)
[2017-09-25 16:22] LABS: WHITE BLOOD COUNT 5.5 10^3/ul (4.8-10.8)
[2017-09-25] MEDS: ONDANSETRON (ODT) 4 MG TAB ODT (16:27)
[2017-09-25 16:42] LABS: PARTIAL THROMBOPLASTIN TIME 26.9 Sec (25.0-35.0); PROTIME 14.4 Sec (11.9-14.9); PT RATIO 1.1
[2017-09-25 16:48] LABS: AMMONIA < 9 umol/l (9-30)
[2017-09-25 16:55] LABS: ANION GAP 15 (8-16)
[2017-09-25 16:56] LABS: ALANINE AMINOTRANSFERASE 21 IU/L (13-69); ALBUMIN 2.8 g/dl (3.3-4.9); ALBUMIN/GLOBULIN RATIO 0.73; ALKALINE PHOSPHATASE 136 IU/L (42-121); ASPARTATE AMINO TRANSFERASE 30 IU/L (15-46); BILIRUBIN,INDIRECT 0.4 mg/dl (0-1.1); BILIRUBIN,TOTAL 0.4 mg/dl (0.2-1.3); BLOOD UREA NITROGEN 16 mg/dl (7-20); CALCIUM 8.9 mg/dl (8.4-10.2); CARBON DIOXIDE 30 mmol/L (21-31); CHLORIDE 94 mmol/L (97-110); CREATININE 0.61 mg/dl (0.44-1.00); GLUCOSE 322 mg/dl (70-220); LIPASE 144 U/L (23-300); POTASSIUM 3.7 mmol/L (3.5-5.1); SODIUM 135 mmol/L (135-144); TOTAL PROTEIN 6.6 g/dl (6.1-8.1)
[2017-09-25] MEDS: LIDOCAINE 1% (MDV) 10 ML INJ (18:23)
== END 2017-09-25 19:07 | disposition home or self-care (01) ==
LOC: E/R 11:23
DX: R18.8 Other ascites (principal); K74.60 Unspecified cirrhosis of liver; I10 Essential (primary) hypertension; E11.9 Type 2 diabetes mellitus without complications; Z79.4 Long term (current) use of insulin
CPT/HCPCS: 36415; 71045; 80053; 82140; 83690; 85025; 85610; 85730; 99285-25

== ENCOUNTER 2017-10-05 08:53 | Emergency (ER) | payer OTHER ==
[2017-10-05] MEDS: LIDOCAINE 1% (MDV) 10 ML INJ (10:32)
== END 2017-10-05 11:11 | disposition home or self-care (01) ==
LOC: E/R 08:53
DX: K70.31 Alcoholic cirrhosis of liver with ascites (principal); E11.9 Type 2 diabetes mellitus without complications; Z79.4 Long term (current) use of insulin
CPT/HCPCS: 99285-25; Z7502

== ENCOUNTER 2017-10-16 07:06 | Emergency (ER) | payer OTHER ==
[2017-10-16] MEDS: KETOROLAC 60 MG INJ IM (07:36)
[2017-10-16 08:32] LABS: ADD MAN DIFF? NO
[2017-10-16 08:55] LABS: WHITE BLOOD COUNT 6.7 10^3/ul (4.8-10.8)
[2017-10-16 08:55] LABS: BASOPHIL # 0.1 10^3/ul (0.0-0.1); BASOPHILS % 0.9 % (0.0-2.0); EOSINOPHILS # 0.9 10^3/ul (0.0-0.5); EOSINOPHILS % 14.1 % (0.0-7.0); HEMATOCRIT 32.7 % (37.0-47.0); HEMOGLOBIN 10.3 g/dl (12.0-16.0); LYMPHOCYTES # 1.2 10^3/ul (0.8-2.9); LYMPHOCYTES % 17.7 % (15.0-51.0); MEAN CORPUSCULAR HEMOGLOBIN 25.6 pg (29.0-33.0); MEAN CORPUSCULAR HGB CONC 31.5 g/dl (32.0-37.0); MEAN CORPUSCULAR VOLUME 81.1 fl (82.0-101.0); MEAN PLATELET VOLUME 9.1 fl (7.4-10.4); MONOCYTE # 0.4 10^3/ul (0.3-0.9); MONOCYTES % 6.6 % (0.0-11.0); NEUTROPHILS % 60.4 % (39.0-77.0); PLATELET COUNT 190 10^3/UL (140-415); RED BLOOD COUNT 4.03 10^6/ul (4.20-5.40); RED CELL DISTRIBUTION WIDTH 17.2 % (11.5-14.5)
[2017-10-16 09:05] LABS: INR 1.07; PT RATIO 1.1
[2017-10-16 09:06] LABS: ALANINE AMINOTRANSFERASE 13 IU/L (13-69); ALBUMIN 2.9 g/dl (3.3-4.9); ALBUMIN/GLOBULIN RATIO 0.74; ALKALINE PHOSPHATASE 135 IU/L (42-121); ANION GAP 13 (8-16); ASPARTATE AMINO TRANSFERASE 25 IU/L (15-46); BILIRUBIN,INDIRECT 0.3 mg/dl (0-1.1); BILIRUBIN,TOTAL 0.3 mg/dl (0.2-1.3); BLOOD UREA NITROGEN 17 mg/dl (7-20); CALCIUM 9.2 mg/dl (8.4-10.2); CARBON DIOXIDE 30 mmol/L (21-31); CHLORIDE 101 mmol/L (97-110); CREATININE 0.75 mg/dl (0.44-1.00); GLUCOSE 160 mg/dl (70-220); PARTIAL THROMBOPLASTIN TIME 33.7 Sec (25.0-35.0); POTASSIUM 3.7 mmol/L (3.5-5.1); SODIUM 140 mmol/L (135-144); TOTAL PROTEIN 6.8 g/dl (6.1-8.1)
[2017-10-16] MEDS: LIDOCAINE 1% (MDV) 10 ML INJ (11:32)
== END 2017-10-16 13:11 | disposition home or self-care (01) ==
LOC: FTE 07:06
DX: M54.5 Low back pain (principal); E11.9 Type 2 diabetes mellitus without complications; R06.02 Shortness of breath; Z79.4 Long term (current) use of insulin
CPT/HCPCS: 72100; 80053; 85025; 85610; 85730; 96372; 99285-25

== ENCOUNTER 2018-01-17 08:48 | Emergency (ER) | payer OTHER ==
[2018-01-17] MEDS: morphine 4 MG/ML VIAL IV (09:22)
[2018-01-17] MEDS: ONDANSETRON 4 MG INJ IV (09:22)
[2018-01-17 09:30] LABS: ADD MAN DIFF? NO
[2018-01-17 09:33] LABS: WHITE BLOOD COUNT 4.7 10^3/ul (4.8-10.8)
[2018-01-17 09:33] LABS: BASOPHILS % 0.6 % (0.0-2.0); EOSINOPHILS # 0.1 10^3/ul (0.0-0.5); EOSINOPHILS % 1.7 % (0.0-7.0); HEMATOCRIT 31.6 % (37.0-47.0); LYMPHOCYTES # 1.3 10^3/ul (0.8-2.9); LYMPHOCYTES % 27.1 % (15.0-51.0); MEAN CORPUSCULAR HEMOGLOBIN 26.7 pg (29.0-33.0); MEAN CORPUSCULAR HGB CONC 31.6 g/dl (32.0-37.0); MEAN CORPUSCULAR VOLUME 84.5 fl (82.0-101.0); MEAN PLATELET VOLUME 9.1 fl (7.4-10.4); MONOCYTE # 0.4 10^3/ul (0.3-0.9); MONOCYTES % 8.7 % (0.0-11.0); NEUTROPHIL # 2.9 10^3/ul (1.6-7.5); NEUTROPHILS % 61.5 % (39.0-77.0); PLATELET COUNT 165 10^3/UL (140-415); RED BLOOD COUNT 3.74 10^6/ul (4.20-5.40); RED CELL DISTRIBUTION WIDTH 16.7 % (11.5-14.5)
[2018-01-17 09:56] LABS: ALANINE AMINOTRANSFERASE 17 IU/L (13-69); ALBUMIN 3.4 g/dl (3.3-4.9); ALBUMIN/GLOBULIN RATIO 1.06; ALKALINE PHOSPHATASE 93 IU/L (42-121); AMYLASE 37 U/L (11-123); ANION GAP 11 (8-16); ASPARTATE AMINO TRANSFERASE 27 IU/L (15-46); BILIRUBIN,INDIRECT 0.7 mg/dl (0-1.1); BILIRUBIN,TOTAL 0.7 mg/dl (0.2-1.3); BLOOD UREA NITROGEN 13 mg/dl (7-20); CALCIUM 9.2 mg/dl (8.4-10.2); CARBON DIOXIDE 31 mmol/L (21-31); CHLORIDE 100 mmol/L (97-110); CREATININE 0.66 mg/dl (0.44-1.00); GLUCOSE 216 mg/dl (70-220); LIPASE 61 U/L (23-300); POTASSIUM 3.6 mmol/L (3.5-5.1); SODIUM 138 mmol/L (135-144); TOTAL PROTEIN 6.6 g/dl (6.1-8.1)
[2018-01-17 10:07] LABS: TROPONIN-I < 0.010 ng/ml (0.000-0.120)
[2018-01-17] MEDS ORDERED: ALBUMIN HUMAN 25% 200 ML IV (10:30)
[2018-01-17 10:33] LABS: INR 1.05; PROTIME 13.8 Sec (11.9-14.9); PT RATIO 1.1
[2018-01-17 10:34] LABS: PARTIAL THROMBOPLASTIN TIME 29.1 Sec (25.0-35.0)
[2018-01-17] MEDS: SOD CHLORIDE 0.9% 1,000 ML IV (12:15)
[2018-01-17 12:46] LABS: ADD UMIC NO; UR ASCORBIC ACID 40 mg/dL (NEGATIVE); UR BILIRUBIN (Dip) NEGATIVE (NEGATIVE); UR BLOOD (Dip) NEGATIVE (NEGATIVE); UR CLARITY CLEAR (CLEAR); UR COLOR YELLOW (YELLOW); UR GLUCOSE (Dip) NEGATIVE (NEGATIVE); UR KETONES (Dip) NEGATIVE (NEGATIVE); UR LEUKOCYTE ESTERASE (Dip) NEGATIVE Leu/ul (NEGATIVE); UR NITRITE (Dip) NEGATIVE (NEGATIVE); UR SPECIFIC GRAVITY (Dip) 1.014 (1.003-1.030); UR TOTAL PROTEIN (Dip) NEGATIVE (NEGATIVE); UR UROBILINOGEN (Dip) NEGATIVE (NEGATIVE)
== END 2018-01-17 14:11 | disposition home or self-care (01) ==
LOC: E/R 08:48
DX: K57.30 Diverticulosis of large intestine without perforation or abscess without bleeding (principal); R18.8 Other ascites; E11.9 Type 2 diabetes mellitus without complications; Z79.4 Long term (current) use of insulin
CPT/HCPCS: 36415; 74176; 76705; 80053; 81003; 82150; 83690; 84484; 85025; 85610; 85730; 93005; 96374; 96375; 99285-25

== ENCOUNTER 2018-03-07 09:06 | Emergency (ER) | payer OTHER ==
[2018-03-07] MEDS: ONDANSETRON 4 MG INJ IV (09:32)
[2018-03-07] MEDS: morphine 4 MG/ML VIAL IV (09:32)
[2018-03-07 09:39] LABS: ADD MAN DIFF? NO
[2018-03-07 09:41] LABS: WHITE BLOOD COUNT 4.2 10^3/ul (4.8-10.8)
[2018-03-07 09:41] LABS: BASOPHILS % 0.5 % (0.0-2.0); EOSINOPHILS # 0.1 10^3/ul (0.0-0.5); EOSINOPHILS % 1.2 % (0.0-7.0); HEMATOCRIT 31.5 % (37.0-47.0); HEMOGLOBIN 9.9 g/dl (12.0-16.0); LYMPHOCYTES % 23.7 % (15.0-51.0); MEAN CORPUSCULAR HEMOGLOBIN 26.8 pg (29.0-33.0); MEAN CORPUSCULAR HGB CONC 31.4 g/dl (32.0-37.0); MEAN CORPUSCULAR VOLUME 85.1 fl (82.0-101.0); MEAN PLATELET VOLUME 8.7 fl (7.4-10.4); MONOCYTE # 0.4 10^3/ul (0.3-0.9); MONOCYTES % 8.6 % (0.0-11.0); NEUTROPHIL # 2.8 10^3/ul (1.6-7.5); PLATELET COUNT 144 10^3/UL (140-415); RED CELL DISTRIBUTION WIDTH 16.9 % (11.5-14.5)
[2018-03-07 10:00] LABS: PROTIME 13.3 Sec (11.9-14.9)
[2018-03-07 10:01] LABS: PARTIAL THROMBOPLASTIN TIME 29.9 Sec (23.0-35.0)
[2018-03-07 10:09] LABS: ALANINE AMINOTRANSFERASE 22 IU/L (13-69); ALBUMIN 3.1 g/dl (3.3-4.9); ALBUMIN/GLOBULIN RATIO 0.86; ALKALINE PHOSPHATASE 96 IU/L (42-121); ANION GAP 11 (8-16); ASPARTATE AMINO TRANSFERASE 30 IU/L (15-46); BILIRUBIN,INDIRECT 0.6 mg/dl (0-1.1); BILIRUBIN,TOTAL 0.6 mg/dl (0.2-1.3); BLOOD UREA NITROGEN 12 mg/dl (7-20); CALCIUM 9.6 mg/dl (8.4-10.2); CARBON DIOXIDE 31 mmol/L (21-31); CHLORIDE 100 mmol/L (97-110); CREATININE 0.65 mg/dl (0.44-1.00); GLUCOSE 220 mg/dl (70-220); LIPASE 53 U/L (23-300); POTASSIUM 3.3 mmol/L (3.5-5.1); SODIUM 139 mmol/L (135-144); TOTAL PROTEIN 6.7 g/dl (6.1-8.1)
[2018-03-07] MEDS: LIDOCAINE 1% (MPF) 5 ML VIAL (11:37)
[2018-03-07] MEDS: POTASSIUM CHLORIDE (SR) 20 MEQ TAB PO (11:45)
== END 2018-03-07 12:29 | disposition home or self-care (01) ==
LOC: E/R 09:06
DX: R18.8 Other ascites (principal); R10.84 Generalized abdominal pain; E11.9 Type 2 diabetes mellitus without complications; Z79.4 Long term (current) use of insulin
CPT/HCPCS: 80053; 83690; 85025; 85610; 85730; 96374; 96375; 99285-25

== ENCOUNTER 2018-04-06 10:01 | Emergency (ER) | payer OTHER ==
[2018-04-06 10:45] LABS: ADD MAN DIFF? NO
[2018-04-06 10:47] LABS: BASOPHILS % 0.8 % (0.0-2.0); EOSINOPHILS # 0.1 10^3/ul (0.0-0.5); EOSINOPHILS % 1.2 % (0.0-7.0); HEMATOCRIT 35.8 % (37.0-47.0); HEMOGLOBIN 11.7 g/dl (12.0-16.0); LYMPHOCYTES # 1.3 10^3/ul (0.8-2.9); MEAN CORPUSCULAR HEMOGLOBIN 26.5 pg (29.0-33.0); MEAN CORPUSCULAR HGB CONC 32.7 g/dl (32.0-37.0); MEAN PLATELET VOLUME 9.2 fl (7.4-10.4); MONOCYTE # 0.4 10^3/ul (0.3-0.9); MONOCYTES % 7.7 % (0.0-11.0); NEUTROPHIL # 3.2 10^3/ul (1.6-7.5); NEUTROPHILS % 64.1 % (39.0-77.0); PLATELET COUNT 240 10^3/UL (140-415); RED BLOOD COUNT 4.42 10^6/ul (4.20-5.40); RED CELL DISTRIBUTION WIDTH 15.1 % (11.5-14.5)
[2018-04-06 11:08] LABS: ALANINE AMINOTRANSFERASE 22 IU/L (13-69); ALBUMIN 4.4 g/dl (3.3-4.9); ALBUMIN/GLOBULIN RATIO 0.93; ALKALINE PHOSPHATASE 232 IU/L (42-121); ANION GAP 12 (5-13); ASPARTATE AMINO TRANSFERASE 70 IU/L (15-46); BILIRUBIN,INDIRECT 0.7 mg/dl (0-1.1); BILIRUBIN,TOTAL 0.7 mg/dl (0.2-1.3); BLOOD UREA NITROGEN 32 mg/dl (7-20); CALCIUM 11.3 mg/dl (8.4-10.2); CARBON DIOXIDE 38 mmol/L (21-31); CHLORIDE 85 mmol/L (97-110); CREATININE 0.97 mg/dl (0.44-1.00); Estimated GFR 58 mL/min (>60); GLUCOSE 189 mg/dl (70-220); INR 1.04; PROTIME 13.7 Sec (11.9-14.9); PT RATIO 1.1; SODIUM 135 mmol/L (135-144); TOTAL PROTEIN 9.1 g/dl (6.1-8.1)
[2018-04-06] MEDS: oxyCODONE 5 MG TAB PO (11:23)
[2018-04-06] MEDS: ONDANSETRON (ODT) 4 MG TAB ODT (11:23)
== END 2018-04-06 14:23 | disposition home or self-care (01) ==
LOC: E/R 10:01
DX: D50.9 Iron deficiency anemia, unspecified (principal); E87.3 Alkalosis; R74.0 Nonspecific elevation of levels of transaminase and lactic acid dehydrogenase [LDH]; K74.60 Unspecified cirrhosis of liver; K59.00 Constipation, unspecified
CPT/HCPCS: 36415; 74176; 76705; 80053; 85025; 85610; 99284-25

== ENCOUNTER 2018-06-09 14:12 | Emergency (ER) | payer OTHER ==
[2018-06-09] MEDS: ONDANSETRON 4 MG INJ IV (15:35)
[2018-06-09 15:36] LABS: ADD MAN DIFF? NO
[2018-06-09 15:37] LABS: BASOPHILS % 0.6 % (0.0-2.0); EOSINOPHILS # 0.1 10^3/ul (0.0-0.5); EOSINOPHILS % 1.9 % (0.0-7.0); HEMATOCRIT 30.6 % (37.0-47.0); HEMOGLOBIN 9.6 g/dl (12.0-16.0); LYMPHOCYTES # 1.4 10^3/ul (0.8-2.9); LYMPHOCYTES % 28.8 % (15.0-51.0); MEAN CORPUSCULAR HEMOGLOBIN 26.5 pg (29.0-33.0); MEAN CORPUSCULAR HGB CONC 31.4 g/dl (32.0-37.0); MEAN CORPUSCULAR VOLUME 84.5 fl (82.0-101.0); MEAN PLATELET VOLUME 9.1 fl (7.4-10.4); MONOCYTE # 0.4 10^3/ul (0.3-0.9); MONOCYTES % 8.8 % (0.0-11.0); NEUTROPHIL # 2.8 10^3/ul (1.6-7.5); NEUTROPHILS % 59.7 % (39.0-77.0); PLATELET COUNT 186 10^3/UL (140-415); RED BLOOD COUNT 3.62 10^6/ul (4.20-5.40); RED CELL DISTRIBUTION WIDTH 16.4 % (11.5-14.5)
[2018-06-09 15:37] LABS: WHITE BLOOD COUNT 4.7 10^3/ul (4.8-10.8)
[2018-06-09] MEDS: HYDROmorphONE 1 MG/ML SYG IV (15:39)
[2018-06-09] MEDS: SOD CHLORIDE 0.9% 500 ML IV (15:47)
[2018-06-09 15:52] LABS: PROTIME 13.3 Sec (11.9-14.9)
[2018-06-09 15:53] LABS: PARTIAL THROMBOPLASTIN TIME 30.9 Sec (23.0-35.0)
[2018-06-09 15:55] LABS: ALANINE AMINOTRANSFERASE 11 IU/L (13-69); ALBUMIN 3.5 g/dl (3.3-4.9); ALBUMIN/GLOBULIN RATIO 0.94; ALKALINE PHOSPHATASE 156 IU/L (42-121); ANION GAP 9 (5-13); ASPARTATE AMINO TRANSFERASE 31 IU/L (15-46); BILIRUBIN,INDIRECT 0.2 mg/dl (0-1.1); BILIRUBIN,TOTAL 0.2 mg/dl (0.2-1.3); BLOOD UREA NITROGEN 12 mg/dl (7-20); CALCIUM 9.3 mg/dl (8.4-10.2); CARBON DIOXIDE 25 mmol/L (21-31); CHLORIDE 106 mmol/L (97-110); CREATININE 0.59 mg/dl (0.44-1.00); Estimated GFR > 60 mL/min (>60); GLUCOSE 205 mg/dl (70-220); LIPASE 85 U/L (23-300); POTASSIUM 4.3 mmol/L (3.5-5.1); SODIUM 140 mmol/L (135-144); TOTAL PROTEIN 7.2 g/dl (6.1-8.1)
[2018-06-09] MEDS: LIDOCAINE 1% (MPF) 5 ML VIAL (19:40)
== END 2018-06-09 19:43 | disposition home or self-care (01) ==
LOC: E/R 14:12
DX: K80.20 Calculus of gallbladder without cholecystitis without obstruction (principal); E11.9 Type 2 diabetes mellitus without complications; R18.8 Other ascites; Z79.4 Long term (current) use of insulin
CPT/HCPCS: 36415; 76705; 80053; 83690; 85025; 85610; 85730; 96374; 96375; 99285-25

== ENCOUNTER 2018-08-27 09:32 | Inpatient (IN) | payer OTHER ==
[2018-08-27] MEDS: SOD CHLORIDE 0.9% 500 ML IV (12:31)
[2018-08-27] MEDS: HYDROmorphONE 1 MG/ML SYG IV (12:31)
[2018-08-27] MEDS: ONDANSETRON 4 MG INJ IV (12:31)
[2018-08-27 12:42] LABS: ADD MAN DIFF? NO
[2018-08-27 12:45] LABS: WHITE BLOOD COUNT 5.4 10^3/ul (4.8-10.8)
[2018-08-27 12:45] LABS: ABNORMAL IP MESSAGE 1; BASOPHILS % 0.2 % (0.0-2.0); EOSINOPHILS # 0.1 10^3/ul (0.0-0.5); EOSINOPHILS % 2.1 % (0.0-7.0); HEMATOCRIT 32.9 % (37.0-47.0); HEMOGLOBIN 10.4 g/dl (12.0-16.0); LYMPHOCYTES # 0.7 10^3/ul (0.8-2.9); LYMPHOCYTES % 12.5 % (15.0-51.0); MEAN CORPUSCULAR HEMOGLOBIN 25.2 pg (29.0-33.0); MEAN CORPUSCULAR HGB CONC 31.6 g/dl (32.0-37.0); MEAN CORPUSCULAR VOLUME 79.9 fl (82.0-101.0); MEAN PLATELET VOLUME 9.7 fl (7.4-10.4); MONOCYTE # 0.4 10^3/ul (0.3-0.9); MONOCYTES % 6.5 % (0.0-11.0); NEUTROPHIL # 4.2 10^3/ul (1.6-7.5); NEUTROPHILS % 78.1 % (39.0-77.0); PLATELET COUNT 139 10^3/UL (140-415); RED BLOOD COUNT 4.12 10^6/ul (4.20-5.40); RED CELL DISTRIBUTION WIDTH 17.4 % (11.5-14.5)
[2018-08-27 12:46] LABS: POSITIVE DIFF @See below
[2018-08-27 12:48] LABS: ADD UMIC YES; UR ASCORBIC ACID 40 mg/dL (NEGATIVE); UR BACTERIA MODERATE /HPF (NONE SEEN); UR BILIRUBIN (Dip) NEGATIVE (NEGATIVE); UR BLOOD (Dip) NEGATIVE (NEGATIVE); UR CLARITY SLIGHTLY CLOUDY (CLEAR); UR COLOR AMBER (YELLOW); UR GLUCOSE (Dip) NEGATIVE (NEGATIVE); UR KETONES (Dip) NEGATIVE (NEGATIVE); UR LEUKOCYTE ESTERASE (Dip) 3+ Leu/ul (NEGATIVE); UR NITRITE (Dip) NEGATIVE (NEGATIVE); UR RBC 4 /HPF (0-5); UR RENAL EPITHELIAL CELL FEW /HPF (NONE SEEN); UR SPECIFIC GRAVITY (Dip) 1.018 (1.003-1.030); UR SQUAMOUS EPITHELIAL CELL MANY /HPF (FEW); UR TOTAL PROTEIN (Dip) 1+ mg/dl (NEGATIVE); UR UROBILINOGEN (Dip) 2+ mg/dL (NEGATIVE); UR WBC 83 /HPF (0-5)
[2018-08-27 13:00] LABS: ALANINE AMINOTRANSFERASE 50 IU/L (13-69); ALBUMIN 3.9 g/dl (3.3-4.9); ALBUMIN/GLOBULIN RATIO 0.95; ALKALINE PHOSPHATASE 241 IU/L (42-121); ANION GAP 10 (5-13); ASPARTATE AMINO TRANSFERASE 75 IU/L (15-46); BILIRUBIN,INDIRECT 1.2 mg/dl (0-1.1); BILIRUBIN,TOTAL 3.1 mg/dl (0.2-1.3); BLOOD UREA NITROGEN 26 mg/dl (7-20); CALCIUM 9.9 mg/dl (8.4-10.2); CARBON DIOXIDE 26 mmol/L (21-31); CHLORIDE 99 mmol/L (97-110); CREATININE 0.84 mg/dl (0.44-1.00); Estimated GFR > 60 mL/min (>60); GLUCOSE 203 mg/dl (70-220); LIPASE 37 U/L (23-300); POTASSIUM 3.6 mmol/L (3.5-5.1); SODIUM 135 mmol/L (135-144)
[2018-08-27] MEDS: IOHEXOL 300MG/ML 150 ML BTL (13:30)
[2018-08-27] MEDS: SOD CHLORIDE 0.9% 100 ML (13:30)
[2018-08-27 13:32] LABS: ANISOCYTOSIS 1+ (0-0); BAND NEUTROPHILS #M 1.7 10^3/ul (0.0-0.6); BAND NEUTROPHILS % (M) 32 % (0-4); EOSINOPHILS % (M) 3 % (0-7); LYMPHOCYTES #M 0.3 10^3/ul (0.8-2.9); LYMPHOCYTES % (M) 6 % (15-51); MICROCYTOSIS 1+ (0-0); MONOCYTE #M 0.2 10^3/ul (0.3-0.9); MONOCYTES % (M) 5 % (0-11); PLATELET ESTIMATE NORMAL; POIKILOCYTOSIS 1+ (0-0); POLYCHROMASIA 3+ (0-0); REACTIVE LYMPHOCYTES #M 0.4 10^3/ul (0.0-0.0); REACTIVE LYMPHOCYTES% (M) 8 % (0-0); SEG NEUT #M 2.6 10^3/ul (1.6-7.5); SEGMENTED NEUTROPHILS (M) % 46 % (39-77); SMUDGE%M 2 % (0-0)
[2018-08-27] MEDS ORDERED: ACETAMINOPHEN 325 MG TAB PO ×2 (15:00→17:00)
[2018-08-27] MEDS ORDERED: ONDANSETRON 4 MG INJ IV (15:00)
[2018-08-27 16:35] LABS: PROTIME 14.3 Sec (11.9-14.9); PT RATIO 1.1
[2018-08-27] MEDS ORDERED: NACL 0.9% 3 ML SYG IV (17:00)
[2018-08-27] MEDS ORDERED: MAGNESIUM HYDROXIDE 30ML CUP PO (17:00)
[2018-08-27] MEDS ORDERED: DEXTROSE 50% 50 ML SYRINGE IV ×2 (18:00)
[2018-08-27] MEDS ORDERED: GLUCOSE GEL 15 GRAM TUBE BUCCAL (18:00)
[2018-08-27] MEDS ORDERED: GLUCAGON 1 MG INJ IM (18:00)
[2018-08-27] MEDS ORDERED: GLUCOSE GEL 15 GRAM TUBE PO ×2 (18:00)
[2018-08-27] MEDS: INSULIN ASPART [NOVOLOG] 3 ML PEN SC (18:05)
[2018-08-27] MEDS: SOD CHLORIDE 0.9% 1,000 ML IV (19:30)
[2018-08-27] MEDS: ERTAPENEM SODIUM 1 GM in SOD CHLORIDE 0.9% 100 ML IVPB (19:30)
[2018-08-27] MEDS: SOD CHLORIDE 0.45% 1,000 ML IV ×2 (19:30→23:27)
[2018-08-27] MEDS: MIDODRINE 5 MG TAB PO (21:00)
[2018-08-27] MEDS: ATORVASTATIN 40 MG TAB PO (21:00)
[2018-08-27] MEDS: PIPER-TAZO 3.375 GM IV (PMX) 100 ML IVPB (23:28)
[2018-08-28] MEDS: ACCU-CHEK XX (02:00)
[2018-08-28] MEDS ORDERED: PANTOPRAZOLE 40 MG INJ (04:50)
[2018-08-28] MEDS: PANTOPRAZOLE 40 MG INJ IV (05:00)
[2018-08-28] MEDS: PIPER-TAZO 3.375 GM IV (PMX) 100 ML IVPB ×3 (05:00→21:47)
[2018-08-28] MEDS: INSULIN ASPART [NOVOLOG] 3 ML PEN SC ×5 (05:03→21:30)
[2018-08-28 05:37] LABS: WHITE BLOOD COUNT 3.5 10^3/ul (4.8-10.8)
[2018-08-28 05:38] LABS: ABNORMAL IP MESSAGE 1; HEMOGLOBIN 9.3 g/dl (12.0-16.0); MEAN CORPUSCULAR HEMOGLOBIN 25.8 pg (29.0-33.0); MEAN CORPUSCULAR VOLUME 83.1 fl (82.0-101.0); MEAN PLATELET VOLUME 9.4 fl (7.4-10.4); PLATELET COUNT 135 10^3/UL (140-415); RED BLOOD COUNT 3.61 10^6/ul (4.20-5.40); RED CELL DISTRIBUTION WIDTH 17.3 % (11.5-14.5)
[2018-08-28 05:48] LABS: ADD MAN DIFF? YES; POSITIVE DIFF @See below
[2018-08-28 06:03] LABS: ALANINE AMINOTRANSFERASE 37 IU/L (13-69); ALBUMIN 3.2 g/dl (3.3-4.9); ALBUMIN/GLOBULIN RATIO 0.88; ALKALINE PHOSPHATASE 189 IU/L (42-121); ANION GAP 13 (5-13); ASPARTATE AMINO TRANSFERASE 50 IU/L (15-46); BILIRUBIN,INDIRECT 0.9 mg/dl (0-1.1); BLOOD UREA NITROGEN 17 mg/dl (7-20); CARBON DIOXIDE 23 mmol/L (21-31); CHLORIDE 103 mmol/L (97-110); CREATININE 0.65 mg/dl (0.44-1.00); Estimated GFR > 60 mL/min (>60); GLUCOSE 85 mg/dl (70-220); MAGNESIUM 1.9 mg/dl (1.7-2.5); POTASSIUM 3.6 mmol/L (3.5-5.1); SODIUM 139 mmol/L (135-144); TOTAL PROTEIN 6.8 g/dl (6.1-8.1)
[2018-08-28 06:42] LABS: ALPHA FETOPROTEIN 0.86 IU/L (0.00-7.21)
[2018-08-28 07:21] LABS: ANISOCYTOSIS 1+ (0-0); BAND NEUTROPHILS #M 0.9 10^3/ul (0.0-0.6); BAND NEUTROPHILS % (M) 28 % (0-4); BASOPHILS % (M) 2 % (0-2); BURR CELLS 1+ (0-0); GIANT THROMBO% (M) 2 % (0-0); LYMPHOCYTES #M 0.5 10^3/ul (0.8-2.9); LYMPHOCYTES % (M) 15 % (15-51); MICROCYTOSIS 1+ (0-0); MONOCYTE #M 0.1 10^3/ul (0.3-0.9); MONOCYTES % (M) 5 % (0-11); MYELOCYTES % (M) 1 % (0-0); PLATELET ESTIMATE DECREASED; POIKILOCYTOSIS 1+ (0-0); REACTIVE LYMPHOCYTES% (M) 1 % (0-0); SEG NEUT #M 1.7 10^3/ul (1.6-7.5); SEGMENTED NEUTROPHILS (M) % 48 % (39-77); SMUDGE%M 2 % (0-0)
[2018-08-28] MEDS: ESCITALOPRAM 10 MG TAB PO (09:00)
[2018-08-28] MEDS: MIDODRINE 5 MG TAB PO ×3 (09:00→21:48)
[2018-08-28] MEDS ORDERED: PROPOFOL 20 ML (10:22)
[2018-08-28] MEDS ORDERED: METOCLOPRAMIDE 10 MG INJ (10:22)
[2018-08-28] MEDS ORDERED: SUCCINYLCHOLINE CHLORIDE 100 MG/5 ML SYG IV (10:22)
[2018-08-28] MEDS ORDERED: ONDANSETRON 4 MG INJ (10:22)
[2018-08-28] MEDS ORDERED: FENTAnyl 50 MCG/ML VIAL (10:22)
[2018-08-28] MEDS ORDERED: IOHEXOL 300MG/ML 30 ML BTL (10:30)
[2018-08-28] MEDS ORDERED: EPHEDrine 50 MG INJ (10:59)
[2018-08-28] MEDS: INDOMETHACIN 50 MG SUPP PR (11:00)
[2018-08-28] MEDS: SOD CHLORIDE 0.45% 1,000 ML IV (21:16)
[2018-08-28] MEDS: ATORVASTATIN 40 MG TAB PO (21:49)
[2018-08-29] MEDS: ACCU-CHEK XX (02:00)
[2018-08-29] MEDS: SOD CHLORIDE 0.45% 1,000 ML IV (02:59)
[2018-08-29] MEDS: PIPER-TAZO 3.375 GM IV (PMX) 100 ML IVPB ×3 (06:12→20:10)
[2018-08-29] MEDS: PANTOPRAZOLE 40 MG INJ IV (06:12)
[2018-08-29] MEDS: morphine 2 MG INJ IV (06:42)
[2018-08-29 07:24] LABS: ADD MAN DIFF? NO
[2018-08-29 07:29] LABS: ABNORMAL IP MESSAGE 1; BASOPHILS % 0.3 % (0.0-2.0); EOSINOPHILS # 0.1 10^3/ul (0.0-0.5); EOSINOPHILS % 3.2 % (0.0-7.0); HEMATOCRIT 29.7 % (37.0-47.0); HEMOGLOBIN 9.3 g/dl (12.0-16.0); LYMPHOCYTES # 0.5 10^3/ul (0.8-2.9); LYMPHOCYTES % 13.6 % (15.0-51.0); MEAN CORPUSCULAR HEMOGLOBIN 26.1 pg (29.0-33.0); MEAN CORPUSCULAR HGB CONC 31.3 g/dl (32.0-37.0); MEAN CORPUSCULAR VOLUME 83.4 fl (82.0-101.0); MEAN PLATELET VOLUME 10.3 fl (7.4-10.4); MONOCYTE # 0.3 10^3/ul (0.3-0.9); MONOCYTES % 9.1 % (0.0-11.0); NEUTROPHIL # 2.7 10^3/ul (1.6-7.5); PLATELET COUNT 156 10^3/UL (140-415); RED BLOOD COUNT 3.56 10^6/ul (4.20-5.40); RED CELL DISTRIBUTION WIDTH 17.2 % (11.5-14.5)
[2018-08-29 07:29] LABS: WHITE BLOOD COUNT 3.7 10^3/ul (4.8-10.8)
[2018-08-29 07:39] LABS: POSITIVE DIFF @See below
[2018-08-29 07:48] LABS: ALANINE AMINOTRANSFERASE 27 IU/L (13-69); ALBUMIN 2.7 g/dl (3.3-4.9); ALBUMIN/GLOBULIN RATIO 0.81; ALKALINE PHOSPHATASE 171 IU/L (42-121); ANION GAP 11 (5-13); ASPARTATE AMINO TRANSFERASE 36 IU/L (15-46); BILIRUBIN,INDIRECT 0.9 mg/dl (0-1.1); BILIRUBIN,TOTAL 1.3 mg/dl (0.2-1.3); BLOOD UREA NITROGEN 11 mg/dl (7-20); CALCIUM 8.4 mg/dl (8.4-10.2); CARBON DIOXIDE 21 mmol/L (21-31); CHLORIDE 107 mmol/L (97-110); CREATININE 0.55 mg/dl (0.44-1.00); Estimated GFR > 60 mL/min (>60); GLUCOSE 111 mg/dl (70-220); MAGNESIUM 1.8 mg/dl (1.7-2.5); POTASSIUM 3.5 mmol/L (3.5-5.1); SODIUM 139 mmol/L (135-144)
[2018-08-29 07:48] LABS: PHOSPHORUS 2.3 mg/dl (2.5-4.9)
[2018-08-29] MEDS: INSULIN ASPART [NOVOLOG] 3 ML PEN SC ×4 (08:00→20:09)
[2018-08-29] MEDS: MIDODRINE 5 MG TAB PO ×3 (09:54→20:10)
[2018-08-29] MEDS: ESCITALOPRAM 10 MG TAB PO (09:54)
[2018-08-29] MEDS: SOD PHOS MONO/DIBAS 250 MG TAB PO (17:12)
[2018-08-29] MEDS: ATORVASTATIN 40 MG TAB PO (20:10)
[2018-08-30] MEDS: ACCU-CHEK XX (01:40)
[2018-08-30] MEDS ORDERED: PANTOPRAZOLE (EC) 40 MG TAB PO (04:54)
[2018-08-30] MEDS: PANTOPRAZOLE (EC) 40 MG TAB PO (05:13)
[2018-08-30] MEDS: PIPER-TAZO 3.375 GM IV (PMX) 100 ML IVPB ×3 (05:13→22:02)
[2018-08-30 06:17] LABS: ADD MAN DIFF? NO
[2018-08-30 06:24] LABS: WHITE BLOOD COUNT 4.3 10^3/ul (4.8-10.8)
[2018-08-30 06:24] LABS: BASOPHILS % 0.5 % (0.0-2.0); EOSINOPHILS # 0.1 10^3/ul (0.0-0.5); EOSINOPHILS % 2.3 % (0.0-7.0); HEMATOCRIT 28.7 % (37.0-47.0); HEMOGLOBIN 9.2 g/dl (12.0-16.0); LYMPHOCYTES % 23.7 % (15.0-51.0); MEAN CORPUSCULAR HEMOGLOBIN 25.8 pg (29.0-33.0); MEAN CORPUSCULAR HGB CONC 32.1 g/dl (32.0-37.0); MEAN CORPUSCULAR VOLUME 80.6 fl (82.0-101.0); MEAN PLATELET VOLUME 9.8 fl (7.4-10.4); MONOCYTE # 0.4 10^3/ul (0.3-0.9); MONOCYTES % 10.1 % (0.0-11.0); NEUTROPHIL # 2.7 10^3/ul (1.6-7.5); NEUTROPHILS % 62.2 % (39.0-77.0); PLATELET COUNT 147 10^3/UL (140-415); RED BLOOD COUNT 3.56 10^6/ul (4.20-5.40); RED CELL DISTRIBUTION WIDTH 17.3 % (11.5-14.5)
[2018-08-30 06:54] LABS: ALANINE AMINOTRANSFERASE 27 IU/L (13-69); ALBUMIN 2.7 g/dl (3.3-4.9); ALBUMIN/GLOBULIN RATIO 0.87; ALKALINE PHOSPHATASE 176 IU/L (42-121); ANION GAP 7 (5-13); ASPARTATE AMINO TRANSFERASE 45 IU/L (15-46); BILIRUBIN,INDIRECT 0.8 mg/dl (0-1.1); BILIRUBIN,TOTAL 1.5 mg/dl (0.2-1.3); BLOOD UREA NITROGEN 7 mg/dl (7-20); CALCIUM 8.6 mg/dl (8.4-10.2); CARBON DIOXIDE 22 mmol/L (21-31); CHLORIDE 109 mmol/L (97-110); CREATININE 0.56 mg/dl (0.44-1.00); Estimated GFR > 60 mL/min (>60); GLUCOSE 122 mg/dl (70-220); SODIUM 138 mmol/L (135-144); TOTAL PROTEIN 5.8 g/dl (6.1-8.1)
[2018-08-30 06:54] LABS: AMYLASE 175 U/L (11-123)
[2018-08-30] MEDS: INSULIN ASPART [NOVOLOG] 3 ML PEN SC ×4 (08:00→20:23)
[2018-08-30] MEDS: POTASSIUM CHLORIDE (SR) 20 MEQ TAB PO (09:44)
[2018-08-30] MEDS: ESCITALOPRAM 10 MG TAB PO (09:44)
[2018-08-30] MEDS: MIDODRINE 5 MG TAB PO ×3 (09:45→20:20)
[2018-08-30] MEDS: INFLUENZA VIRUS VACCINE 0.5 ML (DISPENSING) IM* (09:46)
[2018-08-30] MEDS: morphine 2 MG INJ IV (14:34)
[2018-08-30] MEDS: DEXTROSE 5%-0.45% NACL 1,000 ML IV (15:07)
[2018-08-30] MEDS: ATORVASTATIN 40 MG TAB PO (20:19)
[2018-08-30] MEDS: traMADol 50 MG TAB PO (22:04)
[2018-08-31] MEDS: ACCU-CHEK XX (02:00)
[2018-08-31] MEDS: morphine 2 MG INJ IV (05:55)
[2018-08-31] MEDS: PIPER-TAZO 3.375 GM IV (PMX) 100 ML IVPB ×3 (05:59→22:44)
[2018-08-31] MEDS: PANTOPRAZOLE (EC) 40 MG TAB PO (06:00)
[2018-08-31 07:21] LABS: ADD MAN DIFF? NO
[2018-08-31 07:25] LABS: WHITE BLOOD COUNT 4.2 10^3/ul (4.8-10.8)
[2018-08-31 07:25] LABS: BASOPHILS % 0.5 % (0.0-2.0); EOSINOPHILS # 0.1 10^3/ul (0.0-0.5); EOSINOPHILS % 2.6 % (0.0-7.0); HEMATOCRIT 31.7 % (37.0-47.0); HEMOGLOBIN 10.1 g/dl (12.0-16.0); LYMPHOCYTES # 1.3 10^3/ul (0.8-2.9); LYMPHOCYTES % 29.7 % (15.0-51.0); MEAN CORPUSCULAR HEMOGLOBIN 25.6 pg (29.0-33.0); MEAN CORPUSCULAR HGB CONC 31.9 g/dl (32.0-37.0); MEAN CORPUSCULAR VOLUME 80.3 fl (82.0-101.0); MEAN PLATELET VOLUME 10.2 fl (7.4-10.4); MONOCYTE # 0.4 10^3/ul (0.3-0.9); NEUTROPHIL # 2.4 10^3/ul (1.6-7.5); NEUTROPHILS % 56.5 % (39.0-77.0); PLATELET COUNT 176 10^3/UL (140-415); RED BLOOD COUNT 3.95 10^6/ul (4.20-5.40); RED CELL DISTRIBUTION WIDTH 18.1 % (11.5-14.5)
[2018-08-31 07:49] LABS: ALANINE AMINOTRANSFERASE 30 IU/L (13-69); ALBUMIN/GLOBULIN RATIO 0.85; ALKALINE PHOSPHATASE 270 IU/L (42-121); ANION GAP 13 (5-13); ASPARTATE AMINO TRANSFERASE 76 IU/L (15-46); BILIRUBIN,INDIRECT 0.7 mg/dl (0-1.1); BILIRUBIN,TOTAL 1.2 mg/dl (0.2-1.3); BLOOD UREA NITROGEN 6 mg/dl (7-20); CALCIUM 8.6 mg/dl (8.4-10.2); CARBON DIOXIDE 22 mmol/L (21-31); CHLORIDE 105 mmol/L (97-110); CREATININE 0.55 mg/dl (0.44-1.00); Estimated GFR > 60 mL/min (>60); GLUCOSE 171 mg/dl (70-220); POTASSIUM 3.6 mmol/L (3.5-5.1); SODIUM 140 mmol/L (135-144); TOTAL PROTEIN 6.5 g/dl (6.1-8.1)
[2018-08-31 07:59] LABS: PHOSPHORUS 1.9 mg/dl (2.5-4.9)
[2018-08-31 07:59] LABS: MAGNESIUM 1.8 mg/dl (1.7-2.5)
[2018-08-31] MEDS: INSULIN ASPART [NOVOLOG] 3 ML PEN SC ×6 (08:22→21:20)
[2018-08-31] MEDS: MIDODRINE 5 MG TAB PO ×3 (08:24→21:19)
[2018-08-31] MEDS: ESCITALOPRAM 10 MG TAB PO (08:24)
[2018-08-31] MEDS: POTASSIUM PHOSPHATE 15 MM in SOD CHLORIDE 0.9% 250 ML IVPB (11:51)
[2018-08-31] MEDS: DEXTROSE 5%-0.45% NACL 1,000 ML IV (11:51)
[2018-08-31] MEDS ORDERED: IOHEXOL 300MG/ML 30 ML BTL (11:58)
[2018-08-31] MEDS ORDERED: SEVOFLURANE 15 MIN (12:40)
[2018-08-31] MEDS ORDERED: PHENYLephrine (100 MCG/ML) 10ML SYG (12:41)
[2018-08-31] MEDS ORDERED: MIDAZOLAM 1 MG/ML 2 ML INJ (12:41)
[2018-08-31] MEDS ORDERED: FENTAnyl 50 MCG/ML VIAL (12:41)
[2018-08-31] MEDS ORDERED: PROPOFOL 20 ML (12:41)
[2018-08-31] MEDS ORDERED: ROCURONIUM 50 MG INJ (12:41)
[2018-08-31] MEDS ORDERED: CIPROFLOXACIN 400MG/D5W 200 ML (13:00)
[2018-08-31] MEDS ORDERED: METOCLOPRAMIDE 10 MG INJ (13:11)
[2018-08-31] MEDS ORDERED: DEXAMETHASONE 4 MG/ML 5 ML INJ (13:11)
[2018-08-31] MEDS ORDERED: ONDANSETRON 4 MG INJ (13:11)
[2018-08-31] MEDS ORDERED: SUGAMMADEX SODIUM 200 MG/2 ML VIAL IV (13:22)
[2018-08-31] MEDS: INDOMETHACIN 50 MG SUPP PR (13:30)
[2018-08-31] MEDS ORDERED: FENTAnyl 50 MCG/ML VIAL IV (14:00)
[2018-08-31] MEDS ORDERED: LABETALOL HCL 20MG INJ IV (14:00)
[2018-08-31] MEDS ORDERED: HYDROmorphONE 1 MG/5 ML IV SYRINGE IV (14:00)
[2018-08-31] MEDS ORDERED: EPHEDrine SULFATE 50 MG/5 ML SYG IV (14:00)
[2018-08-31] MEDS ORDERED: ONDANSETRON 4 MG INJ IV (14:00)
[2018-08-31] MEDS: ALBUMIN HUMAN 5% 250 ML IV (16:03)
[2018-08-31] MEDS: SOD CHLORIDE 0.9% 1,000 ML IV (16:40)
[2018-08-31] MEDS: ATORVASTATIN 40 MG TAB PO (21:18)
[2018-09-01] MEDS ORDERED: BENZOCAINE 10% 7 GM GEL MM
[2018-09-01] MEDS: BENZOCAINE 10% 7 GM GEL MM ×3 (00:22→20:11)
[2018-09-01] MEDS: ACCU-CHEK XX (02:47)
[2018-09-01 05:38] LABS: ADD MAN DIFF? NO
[2018-09-01 05:41] LABS: BASOPHILS % 0.3 % (0.0-2.0); HEMATOCRIT 31.4 % (37.0-47.0); HEMOGLOBIN 9.7 g/dl (12.0-16.0); LYMPHOCYTES # 0.9 10^3/ul (0.8-2.9); LYMPHOCYTES % 23.8 % (15.0-51.0); MEAN CORPUSCULAR HEMOGLOBIN 25.3 pg (29.0-33.0); MEAN CORPUSCULAR HGB CONC 30.9 g/dl (32.0-37.0); MEAN CORPUSCULAR VOLUME 81.8 fl (82.0-101.0); MEAN PLATELET VOLUME 9.9 fl (7.4-10.4); MONOCYTE # 0.1 10^3/ul (0.3-0.9); MONOCYTES % 3.3 % (0.0-11.0); NEUTROPHIL # 2.8 10^3/ul (1.6-7.5); NEUTROPHILS % 71.8 % (39.0-77.0); PLATELET COUNT 144 10^3/UL (140-415); RED BLOOD COUNT 3.84 10^6/ul (4.20-5.40); RED CELL DISTRIBUTION WIDTH 18.5 % (11.5-14.5)
[2018-09-01 05:41] LABS: WHITE BLOOD COUNT 3.9 10^3/ul (4.8-10.8)
[2018-09-01 06:15] LABS: ALANINE AMINOTRANSFERASE 27 IU/L (13-69); ALBUMIN 2.9 g/dl (3.3-4.9); ALBUMIN/GLOBULIN RATIO 0.93; ALKALINE PHOSPHATASE 219 IU/L (42-121); ANION GAP 11 (5-13); ASPARTATE AMINO TRANSFERASE 49 IU/L (15-46); BILIRUBIN,INDIRECT 0.4 mg/dl (0-1.1); BILIRUBIN,TOTAL 0.4 mg/dl (0.2-1.3); BLOOD UREA NITROGEN 9 mg/dl (7-20); CALCIUM 7.8 mg/dl (8.4-10.2); CARBON DIOXIDE 17 mmol/L (21-31); CHLORIDE 113 mmol/L (97-110); CREATININE 0.57 mg/dl (0.44-1.00); Estimated GFR > 60 mL/min (>60); GLUCOSE 294 mg/dl (70-220); POTASSIUM 4.1 mmol/L (3.5-5.1); SODIUM 141 mmol/L (135-144)
[2018-09-01] MEDS: PANTOPRAZOLE (EC) 40 MG TAB PO (06:32)
[2018-09-01] MEDS: PIPER-TAZO 3.375 GM IV (PMX) 100 ML IVPB ×3 (06:33→21:55)
[2018-09-01] MEDS: DEXTROSE 5%-0.45% NACL 1,000 ML IV (07:51)
[2018-09-01] MEDS: INSULIN ASPART [NOVOLOG] 3 ML PEN SC ×5 (08:23→21:51)
[2018-09-01] MEDS: MIDODRINE 5 MG TAB PO ×3 (08:24→20:11)
[2018-09-01] MEDS: ESCITALOPRAM 10 MG TAB PO (08:24)
[2018-09-01] MEDS: ATORVASTATIN 40 MG TAB PO (20:11)
[2018-09-02] MEDS: ACCU-CHEK XX (02:29)
[2018-09-02] MEDS: PIPER-TAZO 3.375 GM IV (PMX) 100 ML IVPB ×2 (05:59→14:09)
[2018-09-02] MEDS: PANTOPRAZOLE (EC) 40 MG TAB PO (05:59)
[2018-09-02 06:00] LABS: ADD MAN DIFF? NO; BASOPHILS % 0.4 % (0.0-2.0); EOSINOPHILS % 0.4 % (0.0-7.0); HEMATOCRIT 29.2 % (37.0-47.0); HEMOGLOBIN 9.3 g/dl (12.0-16.0); LYMPHOCYTES # 1.5 10^3/ul (0.8-2.9); LYMPHOCYTES % 29.4 % (15.0-51.0); MEAN CORPUSCULAR HEMOGLOBIN 25.8 pg (29.0-33.0); MEAN CORPUSCULAR HGB CONC 31.8 g/dl (32.0-37.0); MEAN CORPUSCULAR VOLUME 80.9 fl (82.0-101.0); MONOCYTE # 0.3 10^3/ul (0.3-0.9); NEUTROPHIL # 3.2 10^3/ul (1.6-7.5); NEUTROPHILS % 62.8 % (39.0-77.0); PLATELET COUNT 176 10^3/UL (140-415); RED BLOOD COUNT 3.61 10^6/ul (4.20-5.40); RED CELL DISTRIBUTION WIDTH 19.1 % (11.5-14.5)
[2018-09-02 06:45] LABS: ANION GAP 8 (5-13); BLOOD UREA NITROGEN 12 mg/dl (7-20); CALCIUM 8.2 mg/dl (8.4-10.2); CARBON DIOXIDE 20 mmol/L (21-31); CHLORIDE 111 mmol/L (97-110); CREATININE 0.63 mg/dl (0.44-1.00); Estimated GFR > 60 mL/min (>60); GLUCOSE 246 mg/dl (70-220); POTASSIUM 4.1 mmol/L (3.5-5.1); SODIUM 139 mmol/L (135-144)
[2018-09-02] MEDS: ESCITALOPRAM 10 MG TAB PO (08:07)
[2018-09-02] MEDS: INSULIN ASPART [NOVOLOG] 3 ML PEN SC ×4 (08:08→12:22)
[2018-09-02] MEDS: MIDODRINE 5 MG TAB PO ×2 (08:08→14:08)
[2018-09-02] MEDS: INSULIN GLARGINE [LANTus] (100 UNITS/ML) SYG SC (08:09)
[2018-09-02] MEDS: BENZOCAINE 10% 7 GM GEL MM (08:10)
[2018-09-02] MEDS: MINERAL OIL 30ML CUP PO ×2 (12:20→12:47)
[2018-09-02] MEDS: ONDANSETRON 4 MG INJ IV (14:11)
== END 2018-09-02 16:20 | disposition home or self-care (01) | DRG 444 ==
LOC: E/R 09:32 → PP2 14:35
PROC: 0F7D8DZ Dilation of Pancreatic Duct with Intraluminal Device, Via Natural or Artificial Opening Endoscopic (ICD-10-PCS; principal; 2018-08-28 10:30)
PROC: 0FC98ZZ Extirpation of Matter from Common Bile Duct, Via Natural or Artificial Opening Endoscopic (ICD-10-PCS; 2018-08-28 10:44)
DX: K80.70 Calculus of gallbladder and bile duct without cholecystitis without obstruction (principal); K83.1 Obstruction of bile duct; N39.0 Urinary tract infection, site not specified; D61.818 Other pancytopenia; E11.9 Type 2 diabetes mellitus without complications; I10 Essential (primary) hypertension; E78.5 Hyperlipidemia, unspecified; K74.69 Other cirrhosis of liver; F32.9 Major depressive disorder, single episode, unspecified; I95.89 Other hypotension; D73.89 Other diseases of spleen; Z86.73 Personal history of transient ischemic attack (TIA), and cerebral infarction without residual deficits; M81.0 Age-related osteoporosis without current pathological fracture; F41.9 Anxiety disorder, unspecified
CPT/HCPCS: 36415; 74177; 74181; 74330; 76705; 80048; 80053; 81001; 82105; 82150; 82962; 83690; 83735; 84100; 85025; 85610; 87086; 90686; 93005; 96374; 96375; 99285-25

== ENCOUNTER 2018-09-07 08:17 | Inpatient (IN) | payer OTHER ==
[2018-09-07 09:15] LABS: WHITE BLOOD COUNT 9.8 10^3/ul (4.8-10.8)
[2018-09-07 09:15] LABS: ADD MAN DIFF? NO; BASOPHIL # 0.1 10^3/ul (0.0-0.1); BASOPHILS % 0.6 % (0.0-2.0); EOSINOPHILS # 0.1 10^3/ul (0.0-0.5); EOSINOPHILS % 1.1 % (0.0-7.0); HEMATOCRIT 35.1 % (37.0-47.0); HEMOGLOBIN 11.4 g/dl (12.0-16.0); LYMPHOCYTES # 2.2 10^3/ul (0.8-2.9); LYMPHOCYTES % 22.5 % (15.0-51.0); MEAN CORPUSCULAR HEMOGLOBIN 26.2 pg (29.0-33.0); MEAN CORPUSCULAR HGB CONC 32.5 g/dl (32.0-37.0); MEAN CORPUSCULAR VOLUME 80.7 fl (82.0-101.0); MEAN PLATELET VOLUME 10.5 fl (7.4-10.4); MONOCYTE # 0.7 10^3/ul (0.3-0.9); MONOCYTES % 7.5 % (0.0-11.0); NEUTROPHIL # 6.6 10^3/ul (1.6-7.5); NEUTROPHILS % 67.4 % (39.0-77.0); PLATELET COUNT 331 10^3/UL (140-415); RED BLOOD COUNT 4.35 10^6/ul (4.20-5.40)
[2018-09-07 09:33] LABS: INR 1.02; PROTIME 13.5 Sec (11.9-14.9); PT RATIO 1.1
[2018-09-07 09:34] LABS: PARTIAL THROMBOPLASTIN TIME 26.4 Sec (23.0-35.0)
[2018-09-07] MEDS: SOD CHLORIDE 0.9% 1,000 ML IV ×2 (09:40→12:41)
[2018-09-07] MEDS: ONDANSETRON 4 MG INJ IV (09:54)
[2018-09-07 11:03] LABS: ALANINE AMINOTRANSFERASE 16 IU/L (13-69); ALBUMIN/GLOBULIN RATIO 1.05; ALKALINE PHOSPHATASE 181 IU/L (42-121); AMYLASE 91 U/L (11-123); ANION GAP 15 (5-13); ASPARTATE AMINO TRANSFERASE 42 IU/L (15-46); BILIRUBIN,TOTAL 0.8 mg/dl (0.2-1.3); BLOOD UREA NITROGEN 24 mg/dl (7-20); CALCIUM 9.9 mg/dl (8.4-10.2); CARBON DIOXIDE 33 mmol/L (21-31); CHLORIDE 88 mmol/L (97-110); CREATININE 1.17 mg/dl (0.44-1.00); Estimated GFR 47 mL/min (>60); GLUCOSE 178 mg/dl (70-220); LIPASE 221 U/L (23-300); SODIUM 136 mmol/L (135-144)
[2018-09-07 11:04] LABS: BILIRUBIN,INDIRECT 0.8 mg/dl (0-1.1)
[2018-09-07 11:05] LABS: ALBUMIN 3.8 g/dl (3.3-4.9); TOTAL PROTEIN 7.4 g/dl (6.1-8.1)
[2018-09-07 11:13] LABS: TROPONIN-I < 0.012 ng/ml (0.000-0.120)
[2018-09-07] MEDS: IOHEXOL 300MG/ML 150 ML BTL (12:18)
[2018-09-07] MEDS: SOD CHLORIDE 0.9% 100 ML (12:19)
[2018-09-07] MEDS: POTASSIUM CHLORIDE (SR) 20 MEQ TAB PO (12:41)
[2018-09-07] MEDS ORDERED: ACETAMINOPHEN 325 MG TAB PO (13:00)
[2018-09-07] MEDS ORDERED: ONDANSETRON 4 MG INJ IV (13:00)
[2018-09-07] MEDS: ALBUMIN HUMAN 5% 250 ML IV (14:02)
[2018-09-07] MEDS: DEXTROSE 5%-0.45% NACL 1,000 ML IV (14:36)
[2018-09-07] MEDS: PANTOPRAZOLE 40 MG INJ IV (15:25)
[2018-09-07] MEDS: PIPER-TAZO 3.375 GM IV (PMX) 100 ML IVPB ×2 (17:21→22:41)
[2018-09-07] MEDS: ALBUMIN HUMAN 25% 100 ML IV (17:25)
[2018-09-07] MEDS ORDERED: metroNIDAZOLE 500 MG/NS (PMX) 100 ML IVPB (18:00)
[2018-09-07] MEDS: METOCLOPRAMIDE 10 MG INJ IV (18:56)
[2018-09-07] MEDS: MIDODRINE 5 MG TAB PO ×2 (21:00→22:58)
[2018-09-08] MEDS: ALBUMIN HUMAN 25% 100 ML IV ×2 (00:02→09:05)
[2018-09-08] MEDS: DEXTROSE 5%-0.45% NACL 1,000 ML IV ×3 (02:07→23:26)
[2018-09-08] MEDS: METOCLOPRAMIDE 10 MG INJ IV ×4 (05:22→17:16)
[2018-09-08] MEDS: PIPER-TAZO 3.375 GM IV (PMX) 100 ML IVPB (05:22)
[2018-09-08 07:01] LABS: LACTIC ACID 0.9 mmol/L (0.5-2.0)
[2018-09-08] MEDS ORDERED: MYCOPHENOLATE 250 MG CAP PO (09:00)
[2018-09-08] MEDS: PANTOPRAZOLE 40 MG INJ IV (09:05)
[2018-09-08] MEDS: ESCITALOPRAM 10 MG TAB PO (09:06)
[2018-09-08] MEDS: MIDODRINE 5 MG TAB PO ×3 (09:06→20:09)
[2018-09-08 11:36] LABS: ADD MAN DIFF? NO
[2018-09-08 11:38] LABS: BASOPHIL # 0.1 10^3/ul (0.0-0.1); EOSINOPHILS # 0.1 10^3/ul (0.0-0.5); HEMATOCRIT 29.4 % (37.0-47.0); HEMOGLOBIN 9.4 g/dl (12.0-16.0); LYMPHOCYTES % 19.8 % (15.0-51.0); MEAN CORPUSCULAR VOLUME 81.2 fl (82.0-101.0); MONOCYTE # 0.4 10^3/ul (0.3-0.9); MONOCYTES % 7.1 % (0.0-11.0); NEUTROPHIL # 3.4 10^3/ul (1.6-7.5); NEUTROPHILS % 69.5 % (39.0-77.0); PLATELET COUNT 194 10^3/UL (140-415); RED BLOOD COUNT 3.62 10^6/ul (4.20-5.40); RED CELL DISTRIBUTION WIDTH 19.4 % (11.5-14.5)
[2018-09-08] MEDS: INSULIN ASPART [NOVOLOG] 3 ML PEN SC ×3 (11:54→20:55)
[2018-09-08] MEDS ORDERED: GLUCAGON 1 MG INJ IM (12:00)
[2018-09-08] MEDS ORDERED: GLUCOSE GEL 15 GRAM TUBE PO ×2 (12:00)
[2018-09-08] MEDS ORDERED: GLUCOSE GEL 15 GRAM TUBE BUCCAL (12:00)
[2018-09-08] MEDS ORDERED: DEXTROSE 50% 50 ML SYRINGE IV ×2 (12:00)
[2018-09-08 12:04] LABS: ANION GAP 9 (5-13); BLOOD UREA NITROGEN 16 mg/dl (7-20); CALCIUM 9.1 mg/dl (8.4-10.2); CARBON DIOXIDE 32 mmol/L (21-31); CHLORIDE 97 mmol/L (97-110); CREATININE 0.92 mg/dl (0.44-1.00); Estimated GFR > 60 mL/min (>60); GLUCOSE 96 mg/dl (70-220); POTASSIUM 3.3 mmol/L (3.5-5.1); SODIUM 138 mmol/L (135-144)
[2018-09-08 12:14] LABS: ADD UMIC YES; UR ASCORBIC ACID NEGATIVE (NEGATIVE); UR BILIRUBIN (Dip) NEGATIVE (NEGATIVE); UR BLOOD (Dip) NEGATIVE (NEGATIVE); UR CLARITY CLEAR (CLEAR); UR COLOR YELLOW (YELLOW); UR GLUCOSE (Dip) NEGATIVE (NEGATIVE); UR KETONES (Dip) NEGATIVE (NEGATIVE); UR LEUKOCYTE ESTERASE (Dip) 3+ Leu/ul (NEGATIVE); UR NITRITE (Dip) NEGATIVE (NEGATIVE); UR RBC 3 /HPF (0-5); UR SPECIFIC GRAVITY (Dip) 1.012 (1.003-1.030); UR SQUAMOUS EPITHELIAL CELL FEW /HPF (FEW); UR TOTAL PROTEIN (Dip) NEGATIVE (NEGATIVE); UR UROBILINOGEN (Dip) NEGATIVE (NEGATIVE); UR WBC 41 /HPF (0-5)
[2018-09-08] MEDS: POTASSIUM CHLORIDE 100 ML IVPB ×2 (12:58→17:10)
[2018-09-08] MEDS: PIPER-TAZO 2.25 GM (PMX) 50 ML IVPB ×2 (14:56→21:15)
[2018-09-08] MEDS: ONDANSETRON 4 MG INJ IV (18:30)
[2018-09-09] MEDS: METOCLOPRAMIDE 10 MG INJ IV ×5 (00:57→23:26)
[2018-09-09] MEDS: PIPER-TAZO 2.25 GM (PMX) 50 ML IVPB (05:20)
[2018-09-09 06:54] LABS: ADD MAN DIFF? NO
[2018-09-09 06:55] LABS: WHITE BLOOD COUNT 5.2 10^3/ul (4.8-10.8)
[2018-09-09 06:55] LABS: BASOPHILS % 0.8 % (0.0-2.0); EOSINOPHILS # 0.1 10^3/ul (0.0-0.5); EOSINOPHILS % 1.9 % (0.0-7.0); HEMATOCRIT 31.6 % (37.0-47.0); HEMOGLOBIN 9.9 g/dl (12.0-16.0); LYMPHOCYTES # 1.5 10^3/ul (0.8-2.9); LYMPHOCYTES % 28.8 % (15.0-51.0); MEAN CORPUSCULAR HEMOGLOBIN 25.6 pg (29.0-33.0); MEAN CORPUSCULAR HGB CONC 31.3 g/dl (32.0-37.0); MEAN CORPUSCULAR VOLUME 81.9 fl (82.0-101.0); MEAN PLATELET VOLUME 9.6 fl (7.4-10.4); MONOCYTE # 0.5 10^3/ul (0.3-0.9); MONOCYTES % 9.5 % (0.0-11.0); NEUTROPHILS % 58.6 % (39.0-77.0); PLATELET COUNT 208 10^3/UL (140-415); RED BLOOD COUNT 3.86 10^6/ul (4.20-5.40); RED CELL DISTRIBUTION WIDTH 19.1 % (11.5-14.5)
[2018-09-09 07:19] LABS: ANION GAP 12 (5-13); BLOOD UREA NITROGEN 11 mg/dl (7-20); CALCIUM 8.9 mg/dl (8.4-10.2); CARBON DIOXIDE 29 mmol/L (21-31); CHLORIDE 96 mmol/L (97-110); CREATININE 0.92 mg/dl (0.44-1.00); Estimated GFR > 60 mL/min (>60); GLUCOSE 275 mg/dl (70-220); SODIUM 137 mmol/L (135-144)
[2018-09-09 07:20] LABS: POTASSIUM 3.5 mmol/L (3.5-5.1)
[2018-09-09] MEDS: INSULIN ASPART [NOVOLOG] 3 ML PEN SC ×4 (07:43→20:33)
[2018-09-09] MEDS: DEXTROSE 5%-0.45% NACL 1,000 ML IV ×2 (08:07→17:20)
[2018-09-09] MEDS: MIDODRINE 5 MG TAB PO ×3 (08:14→20:19)
[2018-09-09] MEDS: PANTOPRAZOLE 40 MG INJ IV (08:14)
[2018-09-09] MEDS: ESCITALOPRAM 10 MG TAB PO (08:14)
[2018-09-09] MEDS: AMOXICILLIN/CLAV 875 MG TAB PO (20:18)
[2018-09-10] MEDS: DEXTROSE 5%-0.45% NACL 1,000 ML IV ×2 (04:12→09:17)
[2018-09-10] MEDS: PANTOPRAZOLE (EC) 40 MG TAB PO (05:33)
[2018-09-10] MEDS: METOCLOPRAMIDE 10 MG INJ IV ×3 (05:33→17:38)
[2018-09-10] MEDS: INSULIN ASPART [NOVOLOG] 3 ML PEN SC ×4 (08:28→20:02)
[2018-09-10] MEDS: AMOXICILLIN/CLAV 875 MG TAB PO ×2 (09:17→20:00)
[2018-09-10] MEDS: ESCITALOPRAM 10 MG TAB PO (09:17)
[2018-09-10] MEDS: MIDODRINE 5 MG TAB PO ×3 (09:17→22:59)
[2018-09-10 09:19] LABS: RETICULOCYTE RBC 3.79
[2018-09-10 09:19] LABS: RETICULOCYTE COUNT # 0.116 X10^6 (0.020-0.110); RETICULOCYTE COUNT % 3.1 % (0.5-1.5)
[2018-09-10 09:38] LABS: IRON 35 ug/dl (35-150)
[2018-09-10 09:48] LABS: % IRON SATURATION 13 % SAT (22-52); TOTAL IRON BINDING CAPACITY 280 ug/dl (241-421)
[2018-09-10 10:13] LABS: FERRITIN 32.8 ng/ml (11.1-264.0)
[2018-09-10 10:43] LABS: FOLATE 14.3 ng/ml (2.8-20.0)
[2018-09-10] MEDS: INSULIN GLARGINE [LANTus] (100 UNITS/ML) SYG SC (20:02)
[2018-09-11] MEDS: METOCLOPRAMIDE 10 MG INJ IV ×3 (00:07→12:46)
[2018-09-11] MEDS: PANTOPRAZOLE (EC) 40 MG TAB PO (06:27)
[2018-09-11 06:35] LABS: ALANINE AMINOTRANSFERASE 15 IU/L (13-69); ALBUMIN 3.9 g/dl (3.3-4.9); ALBUMIN/GLOBULIN RATIO 1.08; ALKALINE PHOSPHATASE 127 IU/L (42-121); ANION GAP 12 (5-13); ASPARTATE AMINO TRANSFERASE 28 IU/L (15-46); BILIRUBIN,INDIRECT 0.6 mg/dl (0-1.1); BILIRUBIN,TOTAL 0.6 mg/dl (0.2-1.3); BLOOD UREA NITROGEN 9 mg/dl (7-20); CALCIUM 9.4 mg/dl (8.4-10.2); CARBON DIOXIDE 32 mmol/L (21-31); CHLORIDE 94 mmol/L (97-110); Estimated GFR > 60 mL/min (>60); GLUCOSE 231 mg/dl (70-220); POTASSIUM 3.7 mmol/L (3.5-5.1); SODIUM 138 mmol/L (135-144); TOTAL PROTEIN 7.5 g/dl (6.1-8.1)
[2018-09-11] MEDS: INSULIN ASPART [NOVOLOG] 3 ML PEN SC ×2 (08:02→12:54)
[2018-09-11] MEDS: ESCITALOPRAM 10 MG TAB PO (08:56)
[2018-09-11] MEDS: AMOXICILLIN/CLAV 875 MG TAB PO (08:56)
[2018-09-11] MEDS: MIDODRINE 5 MG TAB PO ×2 (08:59→12:51)
== END 2018-09-11 15:10 | disposition home or self-care (01) | DRG 445 ==
LOC: E/R 08:17 → 2NE 09-10 13:14 → TEL 12:43
PROVIDERS: Internal Medicine
DX: K80.20 Calculus of gallbladder without cholecystitis without obstruction (principal); R18.8 Other ascites; K76.6 Portal hypertension; N17.9 Acute kidney failure, unspecified; I85.10 Secondary esophageal varices without bleeding; I95.9 Hypotension, unspecified; D89.9 Disorder involving the immune mechanism, unspecified; E11.65 Type 2 diabetes mellitus with hyperglycemia; K31.84 Gastroparesis; K74.69 Other cirrhosis of liver; M50.30 Other cervical disc degeneration, unspecified cervical region; I70.0 Atherosclerosis of aorta; E86.0 Dehydration; E87.6 Hypokalemia; D64.9 Anemia, unspecified; M81.0 Age-related osteoporosis without current pathological fracture; F32.9 Major depressive disorder, single episode, unspecified; E78.5 Hyperlipidemia, unspecified; I86.8 Varicose veins of other specified sites; Z96.89 Presence of other specified functional implants; Z79.4 Long term (current) use of insulin; Z87.440 Personal history of urinary (tract) infections; Z86.73 Personal history of transient ischemic attack (TIA), and cerebral infarction without residual deficits
CPT/HCPCS: 36415; 71045; 74177; 80048; 80053; 81001; 82150; 82607; 82728; 82746; 82962; 83540; 83605; 83690; 84484; 85025; 85045; 85610; 85730; 87081; 93005; 96361; 96374; 99217; 99285-25; G0378

== ENCOUNTER 2018-12-12 08:18 | Emergency (ER) | payer OTHER ==
[2018-12-12 09:25] LABS: ADD MAN DIFF? NO
[2018-12-12 09:26] LABS: WHITE BLOOD COUNT 6.2 10^3/ul (4.8-10.8)
[2018-12-12 09:26] LABS: BASOPHIL # 0.1 10^3/ul (0.0-0.1); EOSINOPHILS # 0.1 10^3/ul (0.0-0.5); HEMATOCRIT 35.5 % (37.0-47.0); HEMOGLOBIN 11.7 g/dl (12.0-16.0); LYMPHOCYTES # 1.5 10^3/ul (0.8-2.9); LYMPHOCYTES % 24.5 % (15.0-51.0); MEAN CORPUSCULAR HEMOGLOBIN 26.8 pg (29.0-33.0); MEAN CORPUSCULAR VOLUME 81.4 fl (82.0-101.0); MEAN PLATELET VOLUME 9.6 fl (7.4-10.4); MONOCYTE # 0.5 10^3/ul (0.3-0.9); MONOCYTES % 7.6 % (0.0-11.0); NEUTROPHIL # 4.1 10^3/ul (1.6-7.5); NEUTROPHILS % 65.6 % (39.0-77.0); PLATELET COUNT 195 10^3/UL (140-415); RED BLOOD COUNT 4.36 10^6/ul (4.20-5.40); RED CELL DISTRIBUTION WIDTH 14.9 % (11.5-14.5)
[2018-12-12 09:39] LABS: ADD UMIC YES; UR ASCORBIC ACID NEGATIVE (NEGATIVE); UR BACTERIA FEW /HPF (NONE SEEN); UR BILIRUBIN (Dip) NEGATIVE (NEGATIVE); UR BLOOD (Dip) NEGATIVE (NEGATIVE); UR CLARITY SLIGHTLY CLOUDY (CLEAR); UR COLOR YELLOW (YELLOW); UR GLUCOSE (Dip) 1+ mg/dL (NEGATIVE); UR KETONES (Dip) NEGATIVE (NEGATIVE); UR LEUKOCYTE ESTERASE (Dip) 2+ Leu/ul (NEGATIVE); UR NITRITE (Dip) NEGATIVE (NEGATIVE); UR NONSQUAMOUS EPITHELIAL CELL 1 /HPF (NONE SEEN); UR RBC 4 /HPF (0-5); UR SPECIFIC GRAVITY (Dip) 1.009 (1.003-1.030); UR SQUAMOUS EPITHELIAL CELL FEW /HPF (FEW); UR TOTAL PROTEIN (Dip) NEGATIVE (NEGATIVE); UR UROBILINOGEN (Dip) NEGATIVE (NEGATIVE); UR WBC 5 /HPF (0-5)
[2018-12-12 09:48] LABS: ALBUMIN 4.7 g/dl (3.3-4.9); ALBUMIN/GLOBULIN RATIO 0.87; ALKALINE PHOSPHATASE 166 IU/L (42-121); ANION GAP 14 (5-13); ASPARTATE AMINO TRANSFERASE 43 IU/L (15-46); BILIRUBIN,INDIRECT 0.7 mg/dl (0-1.1); BILIRUBIN,TOTAL 0.7 mg/dl (0.2-1.3); BLOOD UREA NITROGEN 54 mg/dl (7-20); CARBON DIOXIDE 30 mmol/L (21-31); CHLORIDE 91 mmol/L (97-110); CREATININE 1.09 mg/dl (0.44-1.00); Estimated GFR 51 mL/min (>60); GLUCOSE 261 mg/dl (70-220); LIPASE 217 U/L (23-300); POTASSIUM 4.7 mmol/L (3.5-5.1); SODIUM 135 mmol/L (135-144); TOTAL PROTEIN 10.1 g/dl (6.1-8.1)
[2018-12-12 09:52] LABS: ALANINE AMINOTRANSFERASE < 6 IU/L (13-69)
[2018-12-12] MEDS: traMADol 50 MG TAB PO (10:50)
== END 2018-12-12 11:25 | disposition home or self-care (01) ==
LOC: E/R 11:25
DX: K74.60 Unspecified cirrhosis of liver (principal); N39.0 Urinary tract infection, site not specified; K80.20 Calculus of gallbladder without cholecystitis without obstruction; Z79.4 Long term (current) use of insulin; Z86.73 Personal history of transient ischemic attack (TIA), and cerebral infarction without residual deficits
CPT/HCPCS: 36415; 71045; 76705; 80053; 81001; 83690; 85025; 93005; 99285-25

== ENCOUNTER 2019-01-08 10:28 | Day surgery (SDC) | payer OTHER ==
[~2019-01-08 10:28] MED LIST: CIPROFLOXACIN 400 MG in D5W 200 ML IVPB; INDOMETHACIN 50 MG SUPP PR
[2019-01-08 11:17] LABS: ADD MAN DIFF? NO
[2019-01-08 11:18] LABS: BASOPHILS % 0.6 % (0.0-2.0); EOSINOPHILS % 0.6 % (0.0-7.0); HEMOGLOBIN 10.1 g/dl (12.0-16.0); LYMPHOCYTES # 1.8 10^3/ul (0.8-2.9); LYMPHOCYTES % 28.9 % (15.0-51.0); MEAN CORPUSCULAR HEMOGLOBIN 26.1 pg (29.0-33.0); MEAN CORPUSCULAR HGB CONC 31.6 g/dl (32.0-37.0); MEAN CORPUSCULAR VOLUME 82.7 fl (82.0-101.0); MEAN PLATELET VOLUME 8.9 fl (7.4-10.4); MONOCYTE # 0.4 10^3/ul (0.3-0.9); MONOCYTES % 6.6 % (0.0-11.0); PLATELET COUNT 187 10^3/UL (140-415); RED BLOOD COUNT 3.87 10^6/ul (4.20-5.40); RED CELL DISTRIBUTION WIDTH 15.1 % (11.5-14.5)
[2019-01-08 11:18] LABS: WHITE BLOOD COUNT 6.4 10^3/ul (4.8-10.8)
[2019-01-08 11:39] LABS: INR 0.95; PROTIME 12.8 Sec (11.9-14.9)
[2019-01-08 11:41] LABS: PARTIAL THROMBOPLASTIN TIME 24.7 Sec (23.0-35.0)
[2019-01-08] MEDS ORDERED: PROPOFOL 20 ML (11:42)
[2019-01-08] MEDS ORDERED: NEOSTIGMINE 3 MG/3 ML SYRINGE (11:42)
[2019-01-08] MEDS ORDERED: GLYCOPYRROLATE 0.4 MG INJ (11:42)
[2019-01-08] MEDS ORDERED: CEFAZOLIN 1 GM INJ (11:42)
[2019-01-08] MEDS ORDERED: ROCURONIUM 50 MG INJ (11:42)
[2019-01-08 11:43] LABS: ANION GAP 10 (5-13); CALCIUM 10.1 mg/dl (8.4-10.2); CARBON DIOXIDE 34 mmol/L (21-31); CHLORIDE 97 mmol/L (97-110); CREATININE 0.87 mg/dl (0.44-1.00); Estimated GFR > 60 mL/min (>60); GLUCOSE 120 mg/dl (70-220); POTASSIUM 3.8 mmol/L (3.5-5.1); SODIUM 141 mmol/L (135-144)
[2019-01-08] MEDS ORDERED: ONDANSETRON 4 MG INJ (11:43)
[2019-01-08] MEDS ORDERED: FENTAnyl 50 MCG/ML VIAL (11:43)
[2019-01-08] MEDS ORDERED: DEXAMETHASONE 4 MG/ML 5 ML INJ (11:43)
[2019-01-08] MEDS ORDERED: MIDAZOLAM 1 MG/ML 2 ML INJ (11:43)
[2019-01-08 11:46] LABS: BLOOD UREA NITROGEN 27 mg/dl (7-20)
[2019-01-08] MEDS ORDERED: EPHEDrine 25 MG/5 ML SYG IV (12:30)
[2019-01-08] MEDS ORDERED: FENTAnyl 50 MCG/ML VIAL IV ×3 (12:30)
[2019-01-08] MEDS ORDERED: morphine 2 MG INJ IV ×3 (12:30)
[2019-01-08] MEDS ORDERED: LABETALOL HCL 20MG INJ IV (12:30)
[2019-01-08] MEDS ORDERED: ALBUTEROL 0.083% (NEB) 2.5 MG/3 ML AMP HHN (12:30)
[2019-01-08] MEDS ORDERED: MEPERIDINE 25 MG INJ IV (12:30)
[2019-01-08] MEDS ORDERED: MIDAZOLAM 1 MG/ML 2 ML INJ IV (12:30)
[2019-01-08] MEDS ORDERED: hydrALAzine 20 MG INJ IV (12:30)
[2019-01-08] MEDS ORDERED: IPRATROPIUM (NEB) 0.5 MG/2.5 ML AMP HHN (12:30)
[2019-01-08] MEDS: NALBUPHINE IV (13:13)
[2019-01-08] MEDS: ONDANSETRON 4 MG INJ IV ×2 (13:25→15:01)
[2019-01-08] MEDS: TRIMETHOBENZAMIDE 100 MG/ML VIAL IM (13:40)
[2019-01-08] MEDS: DIPHENHYDRAMINE 50 MG INJ IV (13:50)
[2019-01-08] MEDS: SOD CHLORIDE 0.9% 1,000 ML IV (15:23)
== END 2019-01-08 16:39 | disposition home or self-care (01) ==
LOC: SDS 10:28
DX: K80.50 Calculus of bile duct without cholangitis or cholecystitis without obstruction (principal); R10.9 Unspecified abdominal pain; E11.9 Type 2 diabetes mellitus without complications; K74.60 Unspecified cirrhosis of liver; B18.9 Chronic viral hepatitis, unspecified
CPT/HCPCS: 43264; 74330; 80048; 82962; 85025; 85610; 85730; 93005